=== PATIENT | male | born 1955 | race Caucasian/White ===

== ENCOUNTER 2019-11-17 08:20 | Inpatient (IN) ==
[~2019-11-17 08:20] MED LIST: *HR* Norepinephrine 4 MG/4 ML VIAL IVC ONE; D5% in Water 250 ML IV BAG IV ONE
[2019-11-17] MEDS ORDERED: *HR* Rocuronium Bromide 100 MG/10 ML VIAL IVC ONE (08:21)
[2019-11-17] MEDS ORDERED: 0.9 % Sodium Chloride 1,000 ML IVC ONE (08:34)
[2019-11-17] MEDS ORDERED: Ketamine *HR* 500 MG/10 ML MDV IVP ONE (08:52)
[2019-11-17] MEDS: Norepinephrine 4 MG in 0.9 % Sodium Chloride 250 ML IVC SCH ×3 (09:04→18:51)
[2019-11-17 09:10] LABS: Basophils % 0.1 %; Hematocrit 28.4 % (37.5-50.1); Hemoglobin 8.7 g/dL (12.9-16.9); Immature Granulocytes % 0.7 % (0-4); Lymphocytes # 0.4 K/mcL (0.6-4.6); Lymphocytes % 5.2 %; Mean Corpuscular HGB Conc 30.6 g/dL (31.6-35.5); Mean Corpuscular Hemoglobin 31.4 pg (28.0-33.3); Mean Corpuscular Volume 102.5 fL (83.0-100.0); Mean Platelet Volume 11.5 fL (9.4-12.4); Monocytes # 0.5 K/mcL (0.0-1.3); Monocytes % 6.3 %; Neutrophils # 6.7 K/mcL (1.6-8.9); Platelet Count 206 K/mcL (140-400); Red Blood Count 2.77 M/mcL (4.19-5.50); Red Cell Distribution Width 12.2 % (11.5-14.5); Segmented Neutrophils % 87.7 %; White Blood Count 7.6 K/mcL (4.3-11.1)
[2019-11-17] MEDS ORDERED: cefTRIAXone 1,000 MG in Water for inj. (sterile) 10 ML IVP ONE (09:26)
[2019-11-17] MEDS ORDERED: Azithromycin 500 MG in 0.9 % Sodium Chloride 250 ML IVPB ONE ×2 (09:26→12:01)
[2019-11-17 09:30] LABS: Acetaminophen < 10 mcg/mL (10-20); Alanine Aminotransferase 373 Units/L (7-52); Albumin 3.7 g/dL (3.5-5.7); Albumin/Globulin Ratio 1.4 (1.1-2.2); Alkaline Phosphatase 41 Units/L (34-104); Aspartate Amino Transferase 567 Units/L (13-39); BUN/Creatinine Ratio 12 (6-26); Bilirubin,Direct 0.2 mg/dL (0.0-0.2); Bilirubin,Indirect 0.2 mg/dL (0.0-1.0); Bilirubin,Total 0.4 mg/dL (0.3-1.0); Blood Urea Nitrogen 28 mg/dL (8-23); Calcium 8.8 mg/dL (8.6-10.3); Carbon Dioxide 28 mEq/L (23-29); Chloride 94 mEq/L (98-107); Ethanol < 10 mg/dL (Less than 10); Globulin 2.6 g/dL (2.4-3.5); Glucose 197 mg/dL (70-105); Osmolality,Calculated 293 (280-300); Potassium 4.1 mEq/L (3.5-5.1); Salicylate < 2.5 mg/dL (15.0-30.0); Sodium 136 mEq/L (136-145); Total Protein 6.3 g/dL (6.4-8.9); eGFR For African Americans 36 (> 60); eGFR For Non-African Americans 29 (> 60)
[2019-11-17 09:32] LABS: Troponin I 2.14 ng/mL (< 0.04)
[2019-11-17 09:45] LABS: Thyroid Stimulating Hormone 1.205 mcIU/mL (0.340-5.600)
[2019-11-17] MEDS: 0.9 % Sodium Chloride 1,000 ML IVC SCH ×2 (09:48→10:50)
[2019-11-17] MEDS ORDERED: MetroNIDAZOLE 500 MG/100 ML 500 MG/100 ML BAG IVPB ONE (09:57)
[2019-11-17 09:59] LABS: Bilirubin,Urine Small (Negative); Blood,Urine Negative (Negative); Clarity,Urine Cloudy (Clear); Color,Urine Dark Yellow (Yellow); Glucose,Urine (UA) Normal (Normal); Ketones,Urine Negative (Negative); Leukocyte Esterase,Urine Negative (Negative); Nitrite,Urine Negative (Negative); Protein,Urine 100 mg/dL (Neg-Trace); Specific Gravity,Urine 1.023 (1.010-1.025); Urobilinogen,Urine Normal (Normal)
[2019-11-17 10:02] LABS: Bacteria,Urine None Seen per hpf (None-Few); Hyaline Casts,Urine None Seen per lpf (None-Few); RBC,Urine 0-3 per hpf (0-3); Squamous Epithelial Cell,Urine Many per lpf (None-Few)
[2019-11-17 10:12] LABS: Amphetamine Screen,Urine Negative ng/mL (Cutoff=1000); Barbiturate Screen,Urine Negative ng/mL (Cutoff=200); Benzodiazepines Screen,Urine Negative ng/mL (Cutoff=200); Cannabinoid Screen,Urine Negative ng/mL (Cutoff = 50); Cocaine Screen,Urine Negative ng/mL (Cutoff= 300); Opiate Screen,Urine Negative ng/mL (Cutoff=300); Phencyclidine Screen,Urine Negative ng/mL (Cutoff=25)
[2019-11-17] MEDS ORDERED: *HR* FentaNYL (PF) 100 MCG/2 ML VIAL ONE (11:36)
[2019-11-17] MEDS ORDERED: *HR* FentaNYL (PF) 100 MCG/2 ML VIAL IVP ONE (11:38)
[2019-11-17] MEDS ORDERED: Artificial Tears SOLN 15 ML BOTTLE BOTH EYES PRN (12:01)
[2019-11-17] MEDS ORDERED: *HR* Heparin 5,000 UNIT/ML VIAL IVP PRN ×2 (12:01)
[2019-11-17] MEDS ORDERED: Acetaminophen 325 MG TABLET PO PRN (12:01)
[2019-11-17] MEDS ORDERED: Albuterol 2.5 MG/3 ML NEBULIZER IH PRN (12:01)
[2019-11-17] MEDS ORDERED: *HR* Heparin 5,000 UNIT/ML VIAL IVP ONE (12:01)
[2019-11-17] MEDS ORDERED: Naloxone 0.4 MG/ML INJ IVP PRN (12:01)
[2019-11-17] MEDS: FentaNYL (PF) 1,000 MCG in 0.9 % Sodium Chloride 80 ML IVC SCH ×2 (12:02→18:39)
[2019-11-17] MEDS ORDERED: Ketamine *HR* 500 MG/10 ML MDV ONE (12:28)
[2019-11-17 12:45] LABS: ABG Base Excess 3 mEq/L (-2 to 3); ABG HCO3 32 mEq/L (21-27); ABG Oxygen Saturation 95 % (95-98); ABG PCO2 75 mmHg (35-45); ABG PH 7.24 pH Units (7.32-7.45); ABG PO2 89 mmHg (85-104); ABG TCO2 34 mEq/L (20-26); Blood Gas Modality ASSIST CONTROL; Blood Gas VT 550 cc
[2019-11-17] MEDS ORDERED: Aspirin 325 MG TABLET PO ONE (12:55)
[2019-11-17] MEDS ORDERED: Vancomycin (wt based) 1,000 MG VIAL IVPB SCH (13:00)
[2019-11-17 13:02] LABS: Hematocrit 28.9 % (37.5-50.1); Hemoglobin 8.9 g/dL (12.9-16.9)
[2019-11-17] MEDS: Pantoprazole 40 MG VIAL IVP SCH (13:11)
[2019-11-17] MEDS: Heparin 25,000 UNIT/250 ML D5W 25,000 UNIT/250 ML IV.SOLN IVC SCH (13:11)
[2019-11-17 13:14] LABS: Heparin anti-factor XA UFH < 0.04 IU/mL (0.30-0.70)
[2019-11-17 13:15] LABS: INR 1.1; Prothrombin Time 12.2 Seconds (9.4-12.1)
[2019-11-17] MEDS: Ipratropium/Albuterol Neb 3 ML IH SCH ×3 (14:02→19:33)
[2019-11-17] MEDS: Chlorhexidine Rinse 15 ML MOUTHWASH MM SCH ×2 (17:06→19:21)
[2019-11-17] MEDS: methylPREDNISolone 125 MG/2 ML VIAL IVP SCH (17:06)
[2019-11-17] MEDS: Artificial Tears SOLN 15 ML BOTTLE BOTH EYES SCH ×2 (17:56→19:21)
[2019-11-17] MEDS: Doxycycline 100 MG in 0.9 % Sodium Chloride Mini Bag 100 ML IVPB SCH (18:03)
[2019-11-17 18:10] LABS: ABG Base Excess 5 mEq/L (-2 to 3); ABG HCO3 34 mEq/L (21-27); ABG Oxygen Saturation 91 % (95-98); ABG PCO2 80 mmHg (35-45); ABG PH 7.24 pH Units (7.32-7.45); ABG PO2 76 mmHg (85-104); ABG TCO2 36 mEq/L (20-26); Blood Gas Modality AF; Blood Gas VT 550 cc
[2019-11-17] MEDS: cefTRIAXone 2,000 MG in Water for inj. (sterile) 20 ML IVP SCH (19:21)
[2019-11-17] MEDS ORDERED: Perflutren Lipid Microsphere 1.3 ML in 0.9 % Sodium Chloride 8.7 ML IVP ONE (19:58)
[2019-11-17 20:18] LABS: Adenovirus Not Detected (Not Detect); Bordetella Pertussis Not Detected (Not Detect); Chlamydophila pneumoniae Not Detected (Not Detect); Coronavirus 229E Not Detected (Not Detect); Coronavirus HKU1 Not Detected (Not Detect); Coronavirus NL63 Not Detected (Not Detect); Coronavirus OC43 Not Detected (Not Detect); Human Metapneumovirus Not Detected (Not Detect); Human Rhinovirus/Enterovirus Not Detected (Not Detect); Influenza A Subtype 2009 H1 Not Detected (Not Detect); Mycoplasma pneumoniae Not Detected (Not Detect); Parainfluenza Virus 1 Not Detected (Not Detect); Parainfluenza Virus 2 Not Detected (Not Detect); Parainfluenza Virus 3 Not Detected (Not Detect); Parainfluenza Virus 4 Not Detected (Not Detect); Respiratory Syncytial Virus Not Detected (Not Detect)
[2019-11-17 20:21] LABS: Influenza B DETECTED (Not Detect)
[2019-11-17 21:47] LABS: Hemoglobin 8.7 g/dL (12.9-16.9)
[2019-11-17 22:04] LABS: % Iron Saturation 5 % (20-55); Iron 19 mcg/dL (65-175); Transferrin 276 mg/dL (203-362)
[2019-11-18] MEDS: Ipratropium/Albuterol Neb 3 ML IH SCH ×7 (00:14→23:10)
[2019-11-18] MEDS: Artificial Tears SOLN 15 ML BOTTLE BOTH EYES SCH ×7 (00:43→23:44)
[2019-11-18 04:17] LABS: Alanine Aminotransferase 396 Units/L (7-52); Albumin 3.4 g/dL (3.5-5.7); Albumin/Globulin Ratio 1.4 (1.1-2.2); Alkaline Phosphatase 36 Units/L (34-104); Aspartate Amino Transferase 474 Units/L (13-39); BUN/Creatinine Ratio 26 (6-26); Bilirubin,Direct 0.1 mg/dL (0.0-0.2); Bilirubin,Indirect 0.2 mg/dL (0.0-1.0); Bilirubin,Total 0.3 mg/dL (0.3-1.0); Blood Urea Nitrogen 31 mg/dL (8-23); Calcium 7.7 mg/dL (8.6-10.3); Carbon Dioxide 31 mEq/L (23-29); Chloride 101 mEq/L (98-107); Globulin 2.4 g/dL (2.4-3.5); Glucose 190 mg/dL (70-105); Magnesium 2.3 mg/dL (1.6-2.6); Osmolality,Calculated 296 (280-300); Phosphorous 3.8 mg/dL (2.7-4.5); Potassium 4.1 mEq/L (3.5-5.1); Sodium 137 mEq/L (136-145); Total Protein 5.8 g/dL (6.4-8.9); Troponin I 1.97 ng/mL (< 0.04); eGFR For African Americans > 60 (> 60); eGFR For Non-African Americans > 60 (> 60)
[2019-11-18 04:24] LABS: Basophils % 0.1 %; Hematocrit 27.9 % (37.5-50.1); Hemoglobin 8.6 g/dL (12.9-16.9); Immature Granulocytes % 0.6 % (0-4); Lymphocytes # 0.7 K/mcL (0.6-4.6); Lymphocytes % 8.2 %; Mean Corpuscular HGB Conc 30.8 g/dL (31.6-35.5); Mean Corpuscular Hemoglobin 30.9 pg (28.0-33.3); Mean Corpuscular Volume 100.4 fL (83.0-100.0); Mean Platelet Volume 12.1 fL (9.4-12.4); Monocytes # 0.6 K/mcL (0.0-1.3); Monocytes % 6.6 %; Neutrophils # 7.7 K/mcL (1.6-8.9); Platelet Count 201 K/mcL (140-400); Red Blood Count 2.78 M/mcL (4.19-5.50); Red Cell Distribution Width 12.2 % (11.5-14.5); Segmented Neutrophils % 84.5 %; White Blood Count 9.1 K/mcL (4.3-11.1)
[2019-11-18] MEDS: FentaNYL (PF) 1,000 MCG in 0.9 % Sodium Chloride 80 ML IVC SCH ×3 (04:28→22:13)
[2019-11-18] MEDS: Heparin 25,000 UNIT/250 ML D5W 25,000 UNIT/250 ML IV.SOLN IVC SCH ×2 (04:40→22:13)
[2019-11-18 04:44] LABS: ABG Base Excess 7 mEq/L (-2 to 3); ABG HCO3 33 mEq/L (21-27); ABG Oxygen Saturation 97 % (95-98); ABG PCO2 55 mmHg (35-45); ABG PH 7.39 pH Units (7.32-7.45); ABG PO2 89 mmHg (85-104); ABG TCO2 34 mEq/L (20-26); Blood Gas Modality ASSIST CONTROL; Blood Gas VT 550 cc
[2019-11-18] MEDS: Doxycycline 100 MG in 0.9 % Sodium Chloride Mini Bag 100 ML IVPB SCH ×2 (05:37→17:12)
[2019-11-18] MEDS: methylPREDNISolone 125 MG/2 ML VIAL IVP SCH ×2 (05:38→17:11)
[2019-11-18] MEDS ORDERED: Aspirin Enteric Coated 81 MG Tablet PO SCH (09:00)
[2019-11-18] MEDS: Chlorhexidine Rinse 15 ML MOUTHWASH MM SCH ×2 (09:26→19:53)
[2019-11-18] MEDS: Pantoprazole 40 MG VIAL IVP SCH (09:28)
[2019-11-18] MEDS ORDERED: *HR* Dextrose 50 % in Water (Syg) 50 ML SYRINGE IVP PRN (11:23)
[2019-11-18] MEDS ORDERED: Insulin Human Regular 100 UNIT in 0.9 % Sodium Chloride 100 ML IVC SCH (11:30)
[2019-11-18] MEDS ORDERED: Dextrose Gel 15 GM/37.5 ML TUBE PO PRN ×2 (12:02)
[2019-11-18] MEDS ORDERED: D5% in Water 1,000 ML IVC PRN (12:02)
[2019-11-18] MEDS: Insulin LISPRO 300 UNITS/3 ML VIAL SQ SCH ×3 (12:15→23:44)
[2019-11-18] MEDS ORDERED: *HR* LORazepam 0.5 MG TABLET PO SCH (15:00)
[2019-11-18] MEDS ORDERED: *HR* LORazepam 0.5 MG TABLET GTUBE PRN (15:00)
[2019-11-18] MEDS: Norepinephrine 4 MG in 0.9 % Sodium Chloride 250 ML IVC SCH (16:45)
[2019-11-18] MEDS ORDERED: Furosemide 20 MG/2 ML VIAL IVP SCH ×2 (17:00)
[2019-11-18] MEDS: Docusate Oral Soln 100 MG/10 ML UDC GTUBE SCH (19:53)
[2019-11-18] MEDS: cefTRIAXone 2,000 MG in Water for inj. (sterile) 20 ML IVP SCH (19:54)
[2019-11-18] MEDS: Perphenazine 8 MG TABLET GTUBE SCH (19:54)
[2019-11-18] MEDS: lamoTRIgine 100 MG TABLET GTUBE SCH (19:54)
[2019-11-18] MEDS ORDERED: Venlafaxine XR (24 HR) 150 MG CAP.ER.24H PO SCH (21:00)
[2019-11-18] MEDS ORDERED: Perphenazine 8 MG TABLET PO SCH (21:00)
[2019-11-18] MEDS ORDERED: lamoTRIgine 100 MG TABLET PO SCH (21:00)
[2019-11-19] MEDS: Ipratropium/Albuterol Neb 3 ML IH SCH ×6 (03:05→23:34)
[2019-11-19] MEDS: Artificial Tears SOLN 15 ML BOTTLE BOTH EYES SCH ×6 (03:50→23:21)
[2019-11-19 04:00] LABS: Basophils % 0.1 %; Hematocrit 27.8 % (37.5-50.1); Hemoglobin 8.6 g/dL (12.9-16.9); Immature Granulocytes % 0.7 % (0-4); Lymphocytes # 0.6 K/mcL (0.6-4.6); Lymphocytes % 4.6 %; Mean Corpuscular HGB Conc 30.9 g/dL (31.6-35.5); Mean Corpuscular Hemoglobin 30.8 pg (28.0-33.3); Mean Corpuscular Volume 99.6 fL (83.0-100.0); Mean Platelet Volume 12.1 fL (9.4-12.4); Monocytes # 0.8 K/mcL (0.0-1.3); Monocytes % 6.3 %; Neutrophils # 11.6 K/mcL (1.6-8.9); Platelet Count 228 K/mcL (140-400); Red Blood Count 2.79 M/mcL (4.19-5.50); Red Cell Distribution Width 12.4 % (11.5-14.5); Segmented Neutrophils % 88.3 %; White Blood Count 13.1 K/mcL (4.3-11.1)
[2019-11-19 04:28] LABS: Alanine Aminotransferase 530 Units/L (7-52); Albumin 3.3 g/dL (3.5-5.7); Albumin/Globulin Ratio 1.3 (1.1-2.2); Alkaline Phosphatase 36 Units/L (34-104); Aspartate Amino Transferase 404 Units/L (13-39); BUN/Creatinine Ratio 36 (6-26); Bilirubin,Total 0.3 mg/dL (0.3-1.0); Blood Urea Nitrogen 40 mg/dL (8-23); Calcium 7.6 mg/dL (8.6-10.3); Carbon Dioxide 33 mEq/L (23-29); Chloride 100 mEq/L (98-107); Globulin 2.5 g/dL (2.4-3.5); Glucose 198 mg/dL (70-105); Magnesium 2.5 mg/dL (1.6-2.6); Osmolality,Calculated 301 (280-300); Phosphorous 3.2 mg/dL (2.7-4.5); Potassium 3.8 mEq/L (3.5-5.1); Sodium 138 mEq/L (136-145); Total Protein 5.8 g/dL (6.4-8.9); eGFR For African Americans > 60 (> 60); eGFR For Non-African Americans > 60 (> 60)
[2019-11-19 04:38] LABS: ABG Base Excess 9 mEq/L (-2 to 3); ABG HCO3 36 mEq/L (21-27); ABG Oxygen Saturation 96 % (95-98); ABG PCO2 58 mmHg (35-45); ABG PO2 88 mmHg (85-104); ABG TCO2 37 mEq/L (20-26); Blood Gas Modality VC; Blood Gas VT 550 cc
[2019-11-19] MEDS: Doxycycline 100 MG in 0.9 % Sodium Chloride Mini Bag 100 ML IVPB SCH ×2 (05:20→18:26)
[2019-11-19] MEDS: methylPREDNISolone 125 MG/2 ML VIAL IVP SCH ×2 (05:21→18:26)
[2019-11-19] MEDS: Insulin LISPRO 300 UNITS/3 ML VIAL SQ SCH ×4 (05:27→23:21)
[2019-11-19] MEDS: FentaNYL (PF) 1,000 MCG in 0.9 % Sodium Chloride 80 ML IVC SCH ×3 (07:23→20:57)
[2019-11-19] MEDS: Docusate Oral Soln 100 MG/10 ML UDC GTUBE SCH ×2 (08:11→20:36)
[2019-11-19] MEDS: Chlorhexidine Rinse 15 ML MOUTHWASH MM SCH ×2 (08:11→20:36)
[2019-11-19] MEDS: Pantoprazole 40 MG VIAL IVP SCH (08:11)
[2019-11-19] MEDS: Perphenazine 8 MG TABLET GTUBE SCH ×2 (08:12→20:37)
[2019-11-19] MEDS: Aspirin 81 MG TAB.CHEW GTUBE SCH (08:12)
[2019-11-19] MEDS ORDERED: Furosemide 20 MG/2 ML VIAL IVP SCH (09:00)
[2019-11-19] MEDS ORDERED: Aminoglycoside Consult 1 EACH MC ONE (09:14)
[2019-11-19] MEDS: Potassium Chloride Elixir 20 MEQ/15 ML UDC GTUBE SCH ×2 (11:25→20:36)
[2019-11-19] MEDS: Dexmedetomidine HCl 400 MCG/100 ML MLS IVC SCH ×3 (11:58→20:38)
[2019-11-19 12:32] LABS: Albumin 3.3 g/dL (3.5-5.7); Albumin/Globulin Ratio 1.4 (1.1-2.2); Bilirubin,Direct 0.1 mg/dL (0.0-0.2); Bilirubin,Indirect 0.2 mg/dL (0.0-1.0); Bilirubin,Total 0.3 mg/dL (0.3-1.0); Globulin 2.4 g/dL (2.4-3.5); Total Protein 5.7 g/dL (6.4-8.9)
[2019-11-19 13:06] LABS: Hepatitis B Surface Antigen Nonreactive (Nonreactive)
[2019-11-19 13:34] LABS: Hepatitis C Virus Antibody Nonreactive (Nonreactive)
[2019-11-19 13:35] LABS: Hepatitis B Core IgM Nonreactive (Nonreactive)
[2019-11-19 13:36] LABS: Hepatitis A Antibody IgM Nonreactive (Nonreactive)
[2019-11-19] MEDS ORDERED: *HR* LORazepam 2 MG/ML VIAL ONE (16:55)
[2019-11-19] MEDS: *HR* LORazepam 2 MG/ML VIAL IVP PRN (17:00)
[2019-11-19] MEDS ORDERED: Acetylcysteine 15,000 MG in D5% in Water 250 ML IVC ONE (17:02)
[2019-11-19] MEDS: *HR* Heparin 5,000 UNIT/ML VIAL SQ SCH (18:27)
[2019-11-19] MEDS ORDERED: Acetylcysteine 5,000 MG in D5% in Water 500 ML IVC ONE (18:30)
[2019-11-19] MEDS: lamoTRIgine 100 MG TABLET GTUBE SCH (20:37)
[2019-11-19] MEDS: cefTRIAXone 2,000 MG in Water for inj. (sterile) 20 ML IVP SCH (20:37)
[2019-11-19] MEDS: Furosemide 20 MG/2 ML VIAL IVP SCH (20:38)
[2019-11-19] MEDS: Norepinephrine 4 MG in 0.9 % Sodium Chloride 250 ML IVC SCH (20:39)
[2019-11-19] MEDS ORDERED: Acetylcysteine 10,000 MG in D5% in Water 1,000 ML IVC ONE (22:30)
[2019-11-20] MEDS: Dexmedetomidine HCl 400 MCG/100 ML MLS IVC SCH ×4 (00:17→20:00)
[2019-11-20] MEDS: FentaNYL (PF) 1,000 MCG in 0.9 % Sodium Chloride 80 ML IVC SCH ×5 (02:53→23:05)
[2019-11-20 03:20] LABS: Basophils % 0.1 %; Hematocrit 28.5 % (37.5-50.1); Hemoglobin 8.8 g/dL (12.9-16.9); Immature Granulocytes % 1.4 % (0-4); Lymphocytes # 0.5 K/mcL (0.6-4.6); Lymphocytes % 4.5 %; Mean Corpuscular HGB Conc 30.9 g/dL (31.6-35.5); Mean Corpuscular Volume 100.4 fL (83.0-100.0); Mean Platelet Volume 11.9 fL (9.4-12.4); Monocytes # 0.9 K/mcL (0.0-1.3); Monocytes % 8.1 %; Neutrophils # 9.6 K/mcL (1.6-8.9); Platelet Count 225 K/mcL (140-400); Red Blood Count 2.84 M/mcL (4.19-5.50); Red Cell Distribution Width 12.6 % (11.5-14.5); Segmented Neutrophils % 85.9 %; White Blood Count 11.1 K/mcL (4.3-11.1)
[2019-11-20 03:34] LABS: Alanine Aminotransferase 495 Units/L (7-52); Albumin 3.3 g/dL (3.5-5.7); Albumin/Globulin Ratio 1.3 (1.1-2.2); Alkaline Phosphatase 32 Units/L (34-104); Aspartate Amino Transferase 185 Units/L (13-39); BUN/Creatinine Ratio 38 (6-26); Bilirubin,Total 0.3 mg/dL (0.3-1.0); Blood Urea Nitrogen 34 mg/dL (8-23); Calcium 7.6 mg/dL (8.6-10.3); Carbon Dioxide 35 mEq/L (23-29); Chloride 100 mEq/L (98-107); Globulin 2.5 g/dL (2.4-3.5); Glucose 203 mg/dL (70-105); Osmolality,Calculated 309 (280-300); Potassium 4.3 mEq/L (3.5-5.1); Sodium 143 mEq/L (136-145); Total Protein 5.8 g/dL (6.4-8.9); eGFR For African Americans > 60 (> 60); eGFR For Non-African Americans > 60 (> 60)
[2019-11-20] MEDS: Artificial Tears SOLN 15 ML BOTTLE BOTH EYES SCH ×6 (03:41→23:22)
[2019-11-20] MEDS: Insulin LISPRO 300 UNITS/3 ML VIAL SQ SCH ×6 (03:42→23:28)
[2019-11-20] MEDS: Ipratropium/Albuterol Neb 3 ML IH SCH ×10 (03:56→23:44)
[2019-11-20 04:37] LABS: ABG Base Excess 12 mEq/L (-2 to 3); ABG HCO3 39 mEq/L (21-27); ABG Oxygen Saturation 96 % (95-98); ABG PCO2 62 mmHg (35-45); ABG PH 7.41 pH Units (7.32-7.45); ABG PO2 85 mmHg (85-104); ABG TCO2 41 mEq/L (20-26); Blood Gas Modality ASSIST CONTROL; Blood Gas VT 550 cc
[2019-11-20] MEDS: methylPREDNISolone 125 MG/2 ML VIAL IVP SCH ×2 (05:27→17:02)
[2019-11-20] MEDS: Doxycycline 100 MG in 0.9 % Sodium Chloride Mini Bag 100 ML IVPB SCH ×2 (05:28→16:49)
[2019-11-20] MEDS: *HR* Heparin 5,000 UNIT/ML VIAL SQ SCH ×2 (05:28→17:03)
[2019-11-20] MEDS: Potassium Chloride Elixir 20 MEQ/15 ML UDC GTUBE SCH ×2 (08:33→20:23)
[2019-11-20] MEDS: Furosemide 20 MG/2 ML VIAL IVP SCH ×2 (08:33→20:24)
[2019-11-20] MEDS: Chlorhexidine Rinse 15 ML MOUTHWASH MM SCH ×2 (08:33→20:23)
[2019-11-20] MEDS: Perphenazine 8 MG TABLET GTUBE SCH ×2 (08:33→20:23)
[2019-11-20] MEDS: Pantoprazole 40 MG VIAL IVP SCH (08:33)
[2019-11-20] MEDS: Aspirin 81 MG TAB.CHEW GTUBE SCH (08:34)
[2019-11-20] MEDS: *HR* LORazepam 2 MG/ML VIAL IVP PRN (13:17)
[2019-11-20] MEDS ORDERED: Ibuprofen 400 MG TABLET PO PRN (13:51)
[2019-11-20 14:05] LABS: Bilirubin,Urine Negative (Negative); Blood,Urine Trace (Negative); Clarity,Urine Clear (Clear); Color,Urine Yellow (Yellow); Glucose,Urine (UA) >=1000 mg/dL (Normal); Ketones,Urine Negative (Negative); Leukocyte Esterase,Urine Negative (Negative); Nitrite,Urine Negative (Negative); Protein,Urine 30 mg/dL (Neg-Trace); Specific Gravity,Urine 1.029 (1.010-1.025); Urobilinogen,Urine Normal (Normal)
[2019-11-20 14:09] LABS: Bacteria,Urine None Seen per hpf (None-Few); Hyaline Casts,Urine None Seen per lpf (None-Few); Squamous Epithelial Cell,Urine Moderate per lpf (None-Few)
[2019-11-20 14:30] LABS: Alanine Aminotransferase 407 Units/L (7-52); Albumin 3.4 g/dL (3.5-5.7); Albumin/Globulin Ratio 1.3 (1.1-2.2); Alkaline Phosphatase 35 Units/L (34-104); Aspartate Amino Transferase 101 Units/L (13-39); BUN/Creatinine Ratio 42 (6-26); Bilirubin,Total 0.3 mg/dL (0.3-1.0); Blood Urea Nitrogen 34 mg/dL (8-23); Calcium 7.7 mg/dL (8.6-10.3); Carbon Dioxide 37 mEq/L (23-29); Chloride 98 mEq/L (98-107); Globulin 2.6 g/dL (2.4-3.5); Glucose 256 mg/dL (70-105); Osmolality,Calculated 308 (280-300); Potassium 4.5 mEq/L (3.5-5.1); Sodium 141 mEq/L (136-145); eGFR For African Americans > 60 (> 60); eGFR For Non-African Americans > 60 (> 60)
[2019-11-20 14:36] LABS: RBC,Urine 0-3 per hpf (0-3)
[2019-11-20] MEDS: Cefepime HCl 2,000 MG in Water for inj. (sterile) 20 ML IVP SCH ×2 (16:50→23:21)
[2019-11-20] MEDS: Norepinephrine 4 MG in 0.9 % Sodium Chloride 250 ML IVC SCH (19:52)
[2019-11-20] MEDS: lamoTRIgine 100 MG TABLET GTUBE SCH (20:23)
[2019-11-20] MEDS: Docusate Oral Soln 100 MG/10 ML UDC GTUBE SCH (20:24)
[2019-11-21] MEDS: Ipratropium/Albuterol Neb 3 ML IH SCH ×12 (01:10→23:47)
[2019-11-21] MEDS: Dexmedetomidine HCl 400 MCG/100 ML MLS IVC SCH ×5 (01:40→23:11)
[2019-11-21 03:46] LABS: BUN/Creatinine Ratio 44 (6-26); Blood Urea Nitrogen 37 mg/dL (8-23); Calcium 8.2 mg/dL (8.6-10.3); Carbon Dioxide 37 mEq/L (23-29); Chloride 101 mEq/L (98-107); Glucose 275 mg/dL (70-105); Osmolality,Calculated 306 (280-300); Potassium 4.7 mEq/L (3.5-5.1); Sodium 139 mEq/L (136-145); eGFR For African Americans > 60 (> 60); eGFR For Non-African Americans > 60 (> 60)
[2019-11-21] MEDS: Artificial Tears SOLN 15 ML BOTTLE BOTH EYES SCH ×6 (03:48→23:09)
[2019-11-21] MEDS: Insulin LISPRO 300 UNITS/3 ML VIAL SQ SCH ×2 (03:49→08:58)
[2019-11-21] MEDS: FentaNYL (PF) 1,000 MCG in 0.9 % Sodium Chloride 80 ML IVC SCH ×3 (03:52→21:24)
[2019-11-21 03:56] LABS: Basophils % 0.1 %; Hematocrit 28.9 % (37.5-50.1); Hemoglobin 8.5 g/dL (12.9-16.9); Immature Granulocytes % 1.4 % (0-4); Lymphocytes # 0.5 K/mcL (0.6-4.6); Lymphocytes % 5.4 %; Mean Corpuscular HGB Conc 29.4 g/dL (31.6-35.5); Mean Corpuscular Volume 102.1 fL (83.0-100.0); Mean Platelet Volume 12.1 fL (9.4-12.4); Monocytes % 10.4 %; Neutrophils # 8.3 K/mcL (1.6-8.9); Platelet Count 240 K/mcL (140-400); Red Blood Count 2.83 M/mcL (4.19-5.50); Red Cell Distribution Width 12.7 % (11.5-14.5); Segmented Neutrophils % 82.7 %
[2019-11-21 04:13] LABS: ABG Base Excess 16 mEq/L (-2 to 3); ABG HCO3 43 mEq/L (21-27); ABG Oxygen Saturation 95 % (95-98); ABG PCO2 68 mmHg (35-45); ABG PH 7.41 pH Units (7.32-7.45); ABG PO2 79 mmHg (85-104); ABG TCO2 45 mEq/L (20-26); Blood Gas Modality AF; Blood Gas VT 550 cc
[2019-11-21] MEDS: Doxycycline 100 MG in 0.9 % Sodium Chloride Mini Bag 100 ML IVPB SCH ×2 (05:27→16:17)
[2019-11-21] MEDS: methylPREDNISolone 125 MG/2 ML VIAL IVP SCH ×2 (05:28→16:18)
[2019-11-21] MEDS: *HR* Heparin 5,000 UNIT/ML VIAL SQ SCH ×2 (05:28→16:17)
[2019-11-21] MEDS: Cefepime HCl 2,000 MG in Water for inj. (sterile) 20 ML IVP SCH ×3 (08:56→23:09)
[2019-11-21] MEDS: Docusate Oral Soln 100 MG/10 ML UDC GTUBE SCH ×2 (08:56→20:40)
[2019-11-21] MEDS: Chlorhexidine Rinse 15 ML MOUTHWASH MM SCH ×2 (08:56→20:38)
[2019-11-21] MEDS: Potassium Chloride Elixir 20 MEQ/15 ML UDC GTUBE SCH ×2 (08:56→20:40)
[2019-11-21] MEDS: Aspirin 81 MG TAB.CHEW GTUBE SCH (08:57)
[2019-11-21] MEDS: Furosemide 20 MG/2 ML VIAL IVP SCH (08:57)
[2019-11-21] MEDS: Perphenazine 8 MG TABLET GTUBE SCH ×2 (08:57→20:38)
[2019-11-21] MEDS: Pantoprazole 40 MG VIAL IVP SCH (08:57)
[2019-11-21] MEDS ORDERED: Bisacodyl 10 MG RECTAL SUPPOSITORY RC PRN (11:14)
[2019-11-21] MEDS ORDERED: *HR* Dextrose 50 % in Water (Syg) 50 ML SYRINGE IVP PRN (11:17)
[2019-11-21] MEDS ORDERED: Insulin Human Regular 100 UNIT in 0.9 % Sodium Chloride 100 ML IVC SCH (11:30)
[2019-11-21 12:44] LABS: Alanine Aminotransferase 325 Units/L (7-52); Albumin 3.3 g/dL (3.5-5.7); Albumin/Globulin Ratio 1.5 (1.1-2.2); Alkaline Phosphatase 30 Units/L (34-104); Aspartate Amino Transferase 59 Units/L (13-39); Bilirubin,Direct 0.2 mg/dL (0.0-0.2); Bilirubin,Indirect 0.2 mg/dL (0.0-1.0); Bilirubin,Total 0.4 mg/dL (0.3-1.0); Globulin 2.2 g/dL (2.4-3.5); Total Protein 5.5 g/dL (6.4-8.9)
[2019-11-21] MEDS: Norepinephrine 4 MG in 0.9 % Sodium Chloride 250 ML IVC SCH (14:09)
[2019-11-21 16:30] LABS: VBG Ionized Calcium 1.14 mmol/L (1.15-1.35)
[2019-11-21] MEDS ORDERED: Ondansetron 4 MG/2 ML VIAL IVP PRN (17:19)
[2019-11-21 17:28] LABS: BUN/Creatinine Ratio 43 (6-26); Blood Urea Nitrogen 37 mg/dL (8-23); Calcium 8.6 mg/dL (8.6-10.3); Carbon Dioxide 43 mEq/L (23-29); Chloride 100 mEq/L (98-107); Glucose 122 mg/dL (70-105); Osmolality,Calculated 308 (280-300); Phosphorous 2.4 mg/dL (2.7-4.5); Potassium 4.7 mEq/L (3.5-5.1); Sodium 144 mEq/L (136-145); eGFR For African Americans > 60 (> 60); eGFR For Non-African Americans > 60 (> 60)
[2019-11-21 18:44] LABS: INR 1.3; Prothrombin Time 15.3 Seconds (9.4-12.1)
[2019-11-21 18:47] LABS: Activated Partial Thrombo Time 64.4 Seconds (26.0-36.0)
[2019-11-21] MEDS ORDERED: *HR* Heparin 5,000 UNIT/ML VIAL IVP ONE (19:28)
[2019-11-21] MEDS ORDERED: *HR* Heparin 5,000 UNIT/ML VIAL IVP PRN ×2 (19:28)
[2019-11-21] MEDS: lamoTRIgine 100 MG TABLET GTUBE SCH (20:39)
[2019-11-21] MEDS: Heparin 25,000 UNIT/250 ML D5W 25,000 UNIT/250 ML IV.SOLN IVC SCH (20:40)
[2019-11-21 21:38] LABS: VBG Ionized Calcium 1.12 mmol/L (1.15-1.35)
[2019-11-21 21:59] LABS: BUN/Creatinine Ratio 42 (6-26); Blood Urea Nitrogen 35 mg/dL (8-23); Calcium 8.6 mg/dL (8.6-10.3); Carbon Dioxide 43 mEq/L (23-29); Chloride 101 mEq/L (98-107); Glucose 152 mg/dL (70-105); Lipase 109 Units/L (11-82); Magnesium 2.1 mg/dL (1.6-2.6); Osmolality,Calculated 313 (280-300); Potassium 5.4 mEq/L (3.5-5.1); Sodium 146 mEq/L (136-145); eGFR For African Americans > 60 (> 60); eGFR For Non-African Americans > 60 (> 60)
[2019-11-22] MEDS: Ipratropium/Albuterol Neb 3 ML IH SCH ×12 (02:11→23:41)
[2019-11-22 03:17] LABS: VBG Ionized Calcium 1.09 mmol/L (1.15-1.35)
[2019-11-22 03:22] LABS: Basophils % 0.1 %; Hematocrit 29.5 % (37.5-50.1); Hemoglobin 8.6 g/dL (12.9-16.9); Immature Granulocytes % 1.5 % (0-4); Lymphocytes % 7.4 %; Mean Corpuscular HGB Conc 29.2 g/dL (31.6-35.5); Mean Corpuscular Hemoglobin 30.2 pg (28.0-33.3); Mean Corpuscular Volume 103.5 fL (83.0-100.0); Mean Platelet Volume 11.5 fL (9.4-12.4); Monocytes # 1.5 K/mcL (0.0-1.3); Monocytes % 10.9 %; Platelet Count 222 K/mcL (140-400); Red Blood Count 2.85 M/mcL (4.19-5.50); Red Cell Distribution Width 12.8 % (11.5-14.5); Segmented Neutrophils % 80.1 %; White Blood Count 13.7 K/mcL (4.3-11.1)
[2019-11-22 03:44] LABS: Alanine Aminotransferase 228 Units/L (7-52); Albumin 3.2 g/dL (3.5-5.7); Albumin/Globulin Ratio 1.3 (1.1-2.2); Alkaline Phosphatase 29 Units/L (34-104); Aspartate Amino Transferase 34 Units/L (13-39); BUN/Creatinine Ratio 42 (6-26); Bilirubin,Direct 0.3 mg/dL (0.0-0.2); Bilirubin,Indirect 0.3 mg/dL (0.0-1.0); Bilirubin,Total 0.6 mg/dL (0.3-1.0); Blood Urea Nitrogen 33 mg/dL (8-23); Calcium 8.4 mg/dL (8.6-10.3); Carbon Dioxide 40 mEq/L (23-29); Chloride 102 mEq/L (98-107); Globulin 2.4 g/dL (2.4-3.5); Glucose 137 mg/dL (70-105); Osmolality,Calculated 311 (280-300); Potassium 4.9 mEq/L (3.5-5.1); Sodium 146 mEq/L (136-145); Total Protein 5.6 g/dL (6.4-8.9); eGFR For African Americans > 60 (> 60); eGFR For Non-African Americans > 60 (> 60)
[2019-11-22] MEDS: Artificial Tears SOLN 15 ML BOTTLE BOTH EYES SCH ×6 (04:26→23:29)
[2019-11-22 05:08] LABS: ABG Base Excess 17 mEq/L (-2 to 3); ABG HCO3 45 mEq/L (21-27); ABG Oxygen Saturation 95 % (95-98); ABG PCO2 75 mmHg (35-45); ABG PH 7.38 pH Units (7.32-7.45); ABG PO2 80 mmHg (85-104); ABG TCO2 47 mEq/L (20-26); Blood Gas VT 550 cc
[2019-11-22] MEDS: methylPREDNISolone 125 MG/2 ML VIAL IVP SCH ×2 (05:11→17:18)
[2019-11-22] MEDS: Doxycycline 100 MG in 0.9 % Sodium Chloride Mini Bag 100 ML IVPB SCH ×2 (05:11→17:18)
[2019-11-22] MEDS: Dexmedetomidine HCl 400 MCG/100 ML MLS IVC SCH ×4 (05:12→22:30)
[2019-11-22] MEDS: Cefepime HCl 2,000 MG in Water for inj. (sterile) 20 ML IVP SCH ×3 (07:53→23:29)
[2019-11-22] MEDS: Chlorhexidine Rinse 15 ML MOUTHWASH MM SCH ×2 (07:53→19:29)
[2019-11-22] MEDS: Perphenazine 8 MG TABLET GTUBE SCH ×2 (07:54→19:30)
[2019-11-22] MEDS: Docusate Oral Soln 100 MG/10 ML UDC GTUBE SCH ×2 (07:54→19:29)
[2019-11-22] MEDS: Pantoprazole 40 MG VIAL IVP SCH (07:54)
[2019-11-22] MEDS: Potassium Chloride Elixir 20 MEQ/15 ML UDC GTUBE SCH ×2 (07:55→19:31)
[2019-11-22] MEDS: Aspirin 81 MG TAB.CHEW GTUBE SCH (07:55)
[2019-11-22] MEDS ORDERED: D5% in Water 1,000 ML IVC PRN (09:11)
[2019-11-22] MEDS ORDERED: *HR* Dextrose 50 % in Water (Syg) 50 ML SYRINGE IVP PRN (09:11)
[2019-11-22] MEDS ORDERED: Dextrose Gel 15 GM/37.5 ML TUBE PO PRN ×2 (09:11)
[2019-11-22] MEDS: Norepinephrine 4 MG in 0.9 % Sodium Chloride 250 ML IVC SCH (10:48)
[2019-11-22] MEDS: Insulin LISPRO 300 UNITS/3 ML VIAL SQ SCH ×3 (12:03→23:29)
[2019-11-22] MEDS: FentaNYL (PF) 1,000 MCG in 0.9 % Sodium Chloride 80 ML IVC SCH (12:15)
[2019-11-22 12:51] LABS: Bilirubin,Urine Negative (Negative); Blood,Urine Small (Negative); Clarity,Urine Clear (Clear); Color,Urine Yellow (Yellow); Glucose,Urine (UA) 500 mg/dL (Normal); Ketones,Urine Trace mg/dL (Negative); Leukocyte Esterase,Urine Negative (Negative); Nitrite,Urine Negative (Negative); Protein,Urine 30 mg/dL (Neg-Trace); Specific Gravity,Urine 1.025 (1.010-1.025); Urobilinogen,Urine Normal (Normal)
[2019-11-22 12:54] LABS: Bacteria,Urine None Seen per hpf (None-Few); Hyaline Casts,Urine None Seen per lpf (None-Few); RBC,Urine 0-3 per hpf (0-3); Squamous Epithelial Cell,Urine Few per lpf (None-Few); WBC,Urine 0-3 per hpf (0-3)
[2019-11-22] MEDS: Heparin 25,000 UNIT/250 ML D5W 25,000 UNIT/250 ML IV.SOLN IVC SCH (15:11)
[2019-11-22] MEDS: lamoTRIgine 100 MG TABLET GTUBE SCH (19:30)
[2019-11-22] MEDS: *HR* LORazepam 2 MG/ML VIAL IVP PRN (19:35)
[2019-11-23] MEDS: Ipratropium/Albuterol Neb 3 ML IH SCH ×12 (01:07→23:25)
[2019-11-23] MEDS: FentaNYL (PF) 1,000 MCG in 0.9 % Sodium Chloride 80 ML IVC SCH ×2 (01:11→09:00)
[2019-11-23] MEDS: Dexmedetomidine HCl 400 MCG/100 ML MLS IVC SCH ×5 (03:09→23:15)
[2019-11-23] MEDS: Artificial Tears SOLN 15 ML BOTTLE BOTH EYES SCH ×6 (03:11→23:14)
[2019-11-23 03:37] LABS: Basophils % 0.2 %; Hematocrit 28.7 % (37.5-50.1); Hemoglobin 8.5 g/dL (12.9-16.9); Immature Granulocytes % 2.2 % (0-4); Lymphocytes # 0.9 K/mcL (0.6-4.6); Lymphocytes % 6.9 %; Mean Corpuscular HGB Conc 29.6 g/dL (31.6-35.5); Mean Corpuscular Hemoglobin 30.6 pg (28.0-33.3); Mean Corpuscular Volume 103.2 fL (83.0-100.0); Mean Platelet Volume 11.7 fL (9.4-12.4); Monocytes # 1.2 K/mcL (0.0-1.3); Monocytes % 9.6 %; Neutrophils # 10.5 K/mcL (1.6-8.9); Platelet Count 213 K/mcL (140-400); Red Blood Count 2.78 M/mcL (4.19-5.50); Red Cell Distribution Width 12.6 % (11.5-14.5); Segmented Neutrophils % 81.1 %; White Blood Count 12.9 K/mcL (4.3-11.1)
[2019-11-23 03:53] LABS: Alanine Aminotransferase 163 Units/L (7-52); Albumin 3.3 g/dL (3.5-5.7); Albumin/Globulin Ratio 1.5 (1.1-2.2); Alkaline Phosphatase 30 Units/L (34-104); Aspartate Amino Transferase 26 Units/L (13-39); BUN/Creatinine Ratio 38 (6-26); Bilirubin,Direct 0.3 mg/dL (0.0-0.2); Bilirubin,Indirect 0.3 mg/dL (0.0-1.0); Bilirubin,Total 0.6 mg/dL (0.3-1.0); Blood Urea Nitrogen 29 mg/dL (8-23); Calcium 8.6 mg/dL (8.6-10.3); Carbon Dioxide 40 mEq/L (23-29); Chloride 100 mEq/L (98-107); Globulin 2.2 g/dL (2.4-3.5); Glucose 187 mg/dL (70-105); Osmolality,Calculated 309 (280-300); Potassium 4.5 mEq/L (3.5-5.1); Sodium 144 mEq/L (136-145); Total Protein 5.5 g/dL (6.4-8.9); eGFR For African Americans > 60 (> 60); eGFR For Non-African Americans > 60 (> 60)
[2019-11-23] MEDS: Doxycycline 100 MG in 0.9 % Sodium Chloride Mini Bag 100 ML IVPB SCH ×2 (05:01→17:15)
[2019-11-23] MEDS: methylPREDNISolone 125 MG/2 ML VIAL IVP SCH ×2 (05:04→17:15)
[2019-11-23] MEDS: Insulin LISPRO 300 UNITS/3 ML VIAL SQ SCH ×4 (05:05→23:18)
[2019-11-23 05:10] LABS: ABG Base Excess 17 mEq/L (-2 to 3); ABG HCO3 42 mEq/L (21-27); ABG Oxygen Saturation 95 % (95-98); ABG PCO2 53 mmHg (35-45); ABG PH 7.51 pH Units (7.32-7.45); ABG PO2 71 mmHg (85-104); ABG TCO2 44 mEq/L (20-26); Blood Gas VT 550 cc
[2019-11-23] MEDS: Pantoprazole 40 MG VIAL IVP SCH (08:00)
[2019-11-23] MEDS: Cefepime HCl 2,000 MG in Water for inj. (sterile) 20 ML IVP SCH ×3 (08:00→23:14)
[2019-11-23] MEDS: Perphenazine 8 MG TABLET GTUBE SCH ×2 (08:01→20:12)
[2019-11-23] MEDS: Aspirin 81 MG TAB.CHEW GTUBE SCH (08:01)
[2019-11-23] MEDS: Docusate Oral Soln 100 MG/10 ML UDC GTUBE SCH ×2 (08:01→20:12)
[2019-11-23] MEDS: Chlorhexidine Rinse 15 ML MOUTHWASH MM SCH ×2 (08:02→20:12)
[2019-11-23] MEDS: Potassium Chloride Elixir 20 MEQ/15 ML UDC GTUBE SCH ×2 (08:03→20:13)
[2019-11-23] MEDS ORDERED: *HR* Metoprolol 5 MG/5 ML VIAL IVP ONE ×3 (09:56→18:17)
[2019-11-23] MEDS: Heparin 25,000 UNIT/250 ML D5W 25,000 UNIT/250 ML IV.SOLN IVC SCH ×2 (10:11→13:26)
[2019-11-23] MEDS: Norepinephrine 4 MG in 0.9 % Sodium Chloride 250 ML IVC SCH (10:12)
[2019-11-23] MEDS ORDERED: DilTIAZem 50 MG in 0.9 % Sodium Chloride 40 ML IVC SCH (18:30)
[2019-11-23 18:40] LABS: VBG Ionized Calcium 0.98 mmol/L (1.15-1.35)
[2019-11-23 18:56] LABS: BUN/Creatinine Ratio 36 (6-26); Blood Urea Nitrogen 26 mg/dL (8-23); Carbon Dioxide 32 mEq/L (23-29); Chloride 102 mEq/L (98-107); Glucose 135 mg/dL (70-105); Magnesium 1.7 mg/dL (1.6-2.6); Osmolality,Calculated 297 (280-300); Potassium 3.6 mEq/L (3.5-5.1); Sodium 140 mEq/L (136-145); eGFR For African Americans > 60 (> 60); eGFR For Non-African Americans > 60 (> 60)
[2019-11-23] MEDS ORDERED: 0.9 % Sodium Chloride 1,000 ML ONE (19:02)
[2019-11-23] MEDS ORDERED: 0.9 % Sodium Chloride 1,000 ML IVC ONE (19:02)
[2019-11-23] MEDS ORDERED: *HR* Adenosine 6 MG/2 ML VIAL IVP ONE (19:16)
[2019-11-23] MEDS ORDERED: Amiodarone Premix 150 MG/100 ML BAG IVPB ONE (19:23)
[2019-11-23] MEDS ORDERED: Amiodarone Premix 360 MG/200 ML BAG IVC ONE ×2 (19:23→19:25)
[2019-11-23] MEDS ORDERED: *HR* LORazepam 2 MG/ML VIAL ONE ×2 (19:38→19:45)
[2019-11-23] MEDS: lamoTRIgine 100 MG TABLET GTUBE SCH (20:12)
[2019-11-23 23:08] LABS: ABG Base Excess 9 mEq/L (-2 to 3); ABG HCO3 34 mEq/L (21-27); ABG Oxygen Saturation 94 % (95-98); ABG PCO2 54 mmHg (35-45); ABG PH 7.41 pH Units (7.32-7.45); ABG PO2 73 mmHg (85-104); ABG TCO2 36 mEq/L (20-26); Blood Gas Modality AF; Blood Gas VT 500 cc
[2019-11-24] MEDS ORDERED: Amiodarone Premix 360 MG/200 ML BAG IVC SCH (02:30)
[2019-11-24] MEDS: Dexmedetomidine HCl 400 MCG/100 ML MLS IVC SCH ×6 (03:10→22:08)
[2019-11-24] MEDS: Artificial Tears SOLN 15 ML BOTTLE BOTH EYES SCH ×6 (03:23→23:35)
[2019-11-24] MEDS: Ipratropium/Albuterol Neb 3 ML IH SCH ×6 (03:24→23:31)
[2019-11-24 03:45] LABS: Basophils % 0.1 %; Eosinophils % 0.2 %; Hematocrit 28.5 % (37.5-50.1); Hemoglobin 8.4 g/dL (12.9-16.9); Immature Granulocytes % 1.2 % (0-4); Lymphocytes % 8.4 %; Mean Corpuscular HGB Conc 29.5 g/dL (31.6-35.5); Mean Corpuscular Hemoglobin 30.3 pg (28.0-33.3); Mean Corpuscular Volume 102.9 fL (83.0-100.0); Mean Platelet Volume 11.5 fL (9.4-12.4); Monocytes % 8.1 %; Neutrophils # 9.9 K/mcL (1.6-8.9); Platelet Count 204 K/mcL (140-400); Red Blood Count 2.77 M/mcL (4.19-5.50); Red Cell Distribution Width 12.4 % (11.5-14.5); White Blood Count 12.1 K/mcL (4.3-11.1)
[2019-11-24 03:47] LABS: VBG Ionized Calcium 1.09 mmol/L (1.15-1.35)
[2019-11-24 04:03] LABS: Magnesium 1.7 mg/dL (1.6-2.6); Phosphorous 2.9 mg/dL (2.7-4.5)
[2019-11-24 04:04] LABS: Alanine Aminotransferase 114 Units/L (7-52); Albumin/Globulin Ratio 1.3 (1.1-2.2); Alkaline Phosphatase 29 Units/L (34-104); Aspartate Amino Transferase 22 Units/L (13-39); BUN/Creatinine Ratio 36 (6-26); Bilirubin,Direct 0.2 mg/dL (0.0-0.2); Bilirubin,Indirect 0.3 mg/dL (0.0-1.0); Bilirubin,Total 0.5 mg/dL (0.3-1.0); Blood Urea Nitrogen 26 mg/dL (8-23); Calcium 7.8 mg/dL (8.6-10.3); Carbon Dioxide 32 mEq/L (23-29); Chloride 101 mEq/L (98-107); Globulin 2.4 g/dL (2.4-3.5); Glucose 181 mg/dL (70-105); Osmolality,Calculated 291 (280-300); Potassium 4.2 mEq/L (3.5-5.1); Sodium 136 mEq/L (136-145); Total Protein 5.4 g/dL (6.4-8.9); eGFR For African Americans > 60 (> 60); eGFR For Non-African Americans > 60 (> 60)
[2019-11-24] MEDS: FentaNYL (PF) 1,000 MCG in 0.9 % Sodium Chloride 80 ML IVC SCH ×2 (04:55→20:07)
[2019-11-24 04:59] LABS: ABG Base Excess 7 mEq/L (-2 to 3); ABG HCO3 32 mEq/L (21-27); ABG Oxygen Saturation 96 % (95-98); ABG PCO2 51 mmHg (35-45); ABG PH 7.41 pH Units (7.32-7.45); ABG PO2 84 mmHg (85-104); ABG TCO2 34 mEq/L (20-26); Blood Gas VT 500 cc
[2019-11-24] MEDS: Insulin LISPRO 300 UNITS/3 ML VIAL SQ SCH ×4 (05:00→23:39)
[2019-11-24] MEDS: methylPREDNISolone 125 MG/2 ML VIAL IVP SCH ×2 (05:01→17:36)
[2019-11-24] MEDS: Doxycycline 100 MG in 0.9 % Sodium Chloride Mini Bag 100 ML IVPB SCH ×2 (05:01→17:36)
[2019-11-24] MEDS ORDERED: Potassium Phosphate 44 MEQ in 0.9 % Sodium Chloride 250 ML IVPB PRN (05:33)
[2019-11-24] MEDS ORDERED: Calcium Gluconate 1gm/50mL 1 GM/50 ML BAG IVPB PRN (05:33)
[2019-11-24] MEDS: Heparin 25,000 UNIT/250 ML D5W 25,000 UNIT/250 ML IV.SOLN IVC SCH (06:21)
[2019-11-24] MEDS: Cefepime HCl 2,000 MG in Water for inj. (sterile) 20 ML IVP SCH ×3 (07:20→23:34)
[2019-11-24] MEDS ORDERED: Calcium Gluconate 1gm/50mL 1 GM/50 ML BAG IVPB ONE (08:37)
[2019-11-24] MEDS: Aspirin 81 MG TAB.CHEW GTUBE SCH (08:45)
[2019-11-24] MEDS: Docusate Oral Soln 100 MG/10 ML UDC GTUBE SCH ×2 (08:45→20:08)
[2019-11-24] MEDS: Perphenazine 8 MG TABLET GTUBE SCH ×2 (08:45→20:08)
[2019-11-24] MEDS: Pantoprazole 40 MG VIAL IVP SCH (08:45)
[2019-11-24] MEDS: Chlorhexidine Rinse 15 ML MOUTHWASH MM SCH ×2 (08:46→20:08)
[2019-11-24] MEDS: Potassium Chloride Elixir 20 MEQ/15 ML UDC GTUBE SCH ×2 (08:46→20:08)
[2019-11-24] MEDS: Norepinephrine 4 MG in 0.9 % Sodium Chloride 250 ML IVC SCH (11:57)
[2019-11-24] MEDS ORDERED: Isovue-370 500 ML BOTTLE IVP ONE (15:25)
[2019-11-24] MEDS ORDERED: SODIUM CHLORIDE/NAHCO3/KCL/PEG 4,000 ML SOLN.RECON PO ONE ×2 (15:37)
[2019-11-24 15:49] LABS: VBG Ionized Calcium 1.13 mmol/L (1.15-1.35)
[2019-11-24 16:04] LABS: Magnesium 1.9 mg/dL (1.6-2.6); Phosphorous 3.7 mg/dL (2.7-4.5)
[2019-11-24 16:17] LABS: Albumin/Globulin Ratio 1.3 (1.1-2.2); Bilirubin,Direct 0.2 mg/dL (0.0-0.2); Bilirubin,Indirect 0.4 mg/dL (0.0-1.0); Bilirubin,Total 0.6 mg/dL (0.3-1.0); Globulin 2.4 g/dL (2.4-3.5); Total Protein 5.4 g/dL (6.4-8.9)
[2019-11-24] MEDS: *HR* Metoprolol 5 MG/5 ML VIAL IVP SCH ×3 (17:35→23:34)
[2019-11-24] MEDS: lamoTRIgine 100 MG TABLET GTUBE SCH (20:08)
[2019-11-25] MEDS: Dexmedetomidine HCl 400 MCG/100 ML MLS IVC SCH ×7 (01:44→22:20)
[2019-11-25] MEDS: Ipratropium/Albuterol Neb 3 ML IH SCH ×6 (03:38→23:18)
[2019-11-25] MEDS: Heparin 25,000 UNIT/250 ML D5W 25,000 UNIT/250 ML IV.SOLN IVC SCH (04:00)
[2019-11-25] MEDS: FentaNYL (PF) 1,000 MCG in 0.9 % Sodium Chloride 80 ML IVC SCH ×2 (04:00→09:58)
[2019-11-25] MEDS: Artificial Tears SOLN 15 ML BOTTLE BOTH EYES SCH ×5 (04:01→19:26)
[2019-11-25 05:03] LABS: Basophils % 0.1 %; Eosinophils % 0.2 %; Hematocrit 29.5 % (37.5-50.1); Hemoglobin 8.8 g/dL (12.9-16.9); Immature Granulocytes % 1.6 % (0-4); Lymphocytes # 0.7 K/mcL (0.6-4.6); Lymphocytes % 5.4 %; Mean Corpuscular HGB Conc 29.8 g/dL (31.6-35.5); Mean Corpuscular Hemoglobin 30.3 pg (28.0-33.3); Mean Corpuscular Volume 101.7 fL (83.0-100.0); Mean Platelet Volume 12.4 fL (9.4-12.4); Monocytes % 8.2 %; Neutrophils # 10.3 K/mcL (1.6-8.9); Platelet Count 225 K/mcL (140-400); Red Cell Distribution Width 12.5 % (11.5-14.5); Segmented Neutrophils % 84.5 %; White Blood Count 12.1 K/mcL (4.3-11.1)
[2019-11-25 05:24] LABS: ABG Base Excess 4 mEq/L (-2 to 3); ABG HCO3 30 mEq/L (21-27); ABG Oxygen Saturation 96 % (95-98); ABG PCO2 53 mmHg (35-45); ABG PH 7.36 pH Units (7.32-7.45); ABG PO2 90 mmHg (85-104); ABG TCO2 31 mEq/L (20-26); Blood Gas Modality AF; Blood Gas VT 500 cc
[2019-11-25] MEDS: Doxycycline 100 MG in 0.9 % Sodium Chloride Mini Bag 100 ML IVPB SCH ×2 (05:31→17:30)
[2019-11-25] MEDS: methylPREDNISolone 125 MG/2 ML VIAL IVP SCH (05:31)
[2019-11-25 05:32] LABS: Alanine Aminotransferase 92 Units/L (7-52); Albumin 3.2 g/dL (3.5-5.7); Albumin/Globulin Ratio 1.4 (1.1-2.2); Alkaline Phosphatase 36 Units/L (34-104); Aspartate Amino Transferase 19 Units/L (13-39); BUN/Creatinine Ratio 37 (6-26); Bilirubin,Direct 0.3 mg/dL (0.0-0.2); Bilirubin,Indirect 0.4 mg/dL (0.0-1.0); Bilirubin,Total 0.7 mg/dL (0.3-1.0); Blood Urea Nitrogen 25 mg/dL (8-23); Carbon Dioxide 30 mEq/L (23-29); Chloride 103 mEq/L (98-107); Globulin 2.3 g/dL (2.4-3.5); Glucose 162 mg/dL (70-105); Magnesium 1.9 mg/dL (1.6-2.6); Osmolality,Calculated 294 (280-300); Phosphorous 2.7 mg/dL (2.7-4.5); Potassium 4.1 mEq/L (3.5-5.1); Sodium 138 mEq/L (136-145); Total Protein 5.5 g/dL (6.4-8.9); eGFR For African Americans > 60 (> 60); eGFR For Non-African Americans > 60 (> 60)
[2019-11-25] MEDS: *HR* Metoprolol 5 MG/5 ML VIAL IVP SCH ×3 (05:32→17:42)
[2019-11-25] MEDS: Insulin LISPRO 300 UNITS/3 ML VIAL SQ SCH ×3 (05:35→19:11)
[2019-11-25] MEDS: Chlorhexidine Rinse 15 ML MOUTHWASH MM SCH ×2 (07:45→19:26)
[2019-11-25] MEDS: Pantoprazole 40 MG VIAL IVP SCH (07:46)
[2019-11-25] MEDS: Cefepime HCl 2,000 MG in Water for inj. (sterile) 20 ML IVP SCH ×2 (07:46→17:42)
[2019-11-25] MEDS: Aspirin 81 MG TAB.CHEW GTUBE SCH (07:47)
[2019-11-25] MEDS: Perphenazine 8 MG TABLET GTUBE SCH ×2 (07:47→19:26)
[2019-11-25] MEDS: Docusate Oral Soln 100 MG/10 ML UDC GTUBE SCH ×2 (07:47→19:26)
[2019-11-25] MEDS: *HR* LORazepam 2 MG/ML VIAL IVP PRN (07:50)
[2019-11-25] MEDS: Lactulose Oral Soln 20 GM/30 ML UDC PO SCH ×3 (08:28→19:26)
[2019-11-25] MEDS: Potassium Chloride Elixir 20 MEQ/15 ML UDC GTUBE SCH ×2 (09:10→19:26)
[2019-11-25 09:46] LABS: BUN/Creatinine Ratio 38 (6-26); Blood Urea Nitrogen 24 mg/dL (8-23); Carbon Dioxide 27 mEq/L (23-29); Chloride 104 mEq/L (98-107); Glucose 152 mg/dL (70-105); Osmolality,Calculated 291 (280-300); Potassium 4.3 mEq/L (3.5-5.1); Sodium 137 mEq/L (136-145); eGFR For African Americans > 60 (> 60); eGFR For Non-African Americans > 60 (> 60)
[2019-11-25] MEDS: Norepinephrine 4 MG in 0.9 % Sodium Chloride 250 ML IVC SCH (09:58)
[2019-11-25] MEDS: *HR* Heparin 5,000 UNIT/ML VIAL SQ SCH ×2 (13:42→21:55)
[2019-11-25] MEDS ORDERED: SODIUM CHLORIDE/NAHCO3/KCL/PEG 4,000 ML SOLN.RECON PO ONE (17:00)
[2019-11-25 17:18] LABS: Magnesium 1.8 mg/dL (1.6-2.6); Phosphorous 3.3 mg/dL (2.7-4.5)
[2019-11-25] MEDS: lamoTRIgine 100 MG TABLET GTUBE SCH (19:26)
[2019-11-26] MEDS: *HR* Metoprolol 5 MG/5 ML VIAL IVP SCH ×5 (01:38→23:44)
[2019-11-26] MEDS: Cefepime HCl 2,000 MG in Water for inj. (sterile) 20 ML IVP SCH ×4 (01:38→23:27)
[2019-11-26] MEDS: Artificial Tears SOLN 15 ML BOTTLE BOTH EYES SCH ×7 (01:38→23:28)
[2019-11-26] MEDS: Insulin LISPRO 300 UNITS/3 ML VIAL SQ SCH ×5 (01:38→23:43)
[2019-11-26] MEDS: Dexmedetomidine HCl 400 MCG/100 ML MLS IVC SCH ×5 (03:14→20:04)
[2019-11-26] MEDS: Ipratropium/Albuterol Neb 3 ML IH SCH ×6 (03:41→23:37)
[2019-11-26 04:19] LABS: Basophils % 0.1 %; Eosinophils # 0.3 K/mcL (0.0-0.6); Eosinophils % 2.3 %; Hematocrit 30.5 % (37.5-50.1); Hemoglobin 8.9 g/dL (12.9-16.9); Lymphocytes # 1.4 K/mcL (0.6-4.6); Mean Corpuscular HGB Conc 29.2 g/dL (31.6-35.5); Mean Corpuscular Hemoglobin 29.9 pg (28.0-33.3); Mean Corpuscular Volume 102.3 fL (83.0-100.0); Monocytes # 1.4 K/mcL (0.0-1.3); Monocytes % 10.9 %; Neutrophils # 9.6 K/mcL (1.6-8.9); Platelet Count 272 K/mcL (140-400); Red Blood Count 2.98 M/mcL (4.19-5.50); Red Cell Distribution Width 12.5 % (11.5-14.5); Segmented Neutrophils % 74.7 %; White Blood Count 12.9 K/mcL (4.3-11.1)
[2019-11-26 04:22] LABS: ABG Base Excess 8 mEq/L (-2 to 3); ABG HCO3 34 mEq/L (21-27); ABG Oxygen Saturation 94 % (95-98); ABG PCO2 56 mmHg (35-45); ABG PH 7.39 pH Units (7.32-7.45); ABG PO2 73 mmHg (85-104); ABG TCO2 36 mEq/L (20-26); Blood Gas Modality ASSIST CONTROL; Blood Gas VT 500 cc
[2019-11-26 04:41] LABS: Alanine Aminotransferase 80 Units/L (7-52); Albumin 3.2 g/dL (3.5-5.7); Albumin/Globulin Ratio 1.5 (1.1-2.2); Alkaline Phosphatase 37 Units/L (34-104); Aspartate Amino Transferase 21 Units/L (13-39); BUN/Creatinine Ratio 36 (6-26); Bilirubin,Direct 0.3 mg/dL (0.0-0.2); Bilirubin,Indirect 0.3 mg/dL (0.0-1.0); Bilirubin,Total 0.6 mg/dL (0.3-1.0); Blood Urea Nitrogen 21 mg/dL (8-23); Calcium 8.1 mg/dL (8.6-10.3); Carbon Dioxide 31 mEq/L (23-29); Chloride 104 mEq/L (98-107); Globulin 2.2 g/dL (2.4-3.5); Glucose 143 mg/dL (70-105); Osmolality,Calculated 293 (280-300); Potassium 3.7 mEq/L (3.5-5.1); Sodium 139 mEq/L (136-145); Total Protein 5.4 g/dL (6.4-8.9); eGFR For African Americans > 60 (> 60); eGFR For Non-African Americans > 60 (> 60)
[2019-11-26] MEDS: FentaNYL (PF) 1,000 MCG in 0.9 % Sodium Chloride 80 ML IVC SCH ×3 (04:41→22:54)
[2019-11-26 05:15] LABS: Phosphorous 2.5 mg/dL (2.7-4.5)
[2019-11-26] MEDS: Doxycycline 100 MG in 0.9 % Sodium Chloride Mini Bag 100 ML IVPB SCH ×2 (06:11→17:54)
[2019-11-26] MEDS: *HR* Heparin 5,000 UNIT/ML VIAL SQ SCH ×3 (06:16→20:07)
[2019-11-26] MEDS: Chlorhexidine Rinse 15 ML MOUTHWASH MM SCH ×2 (08:55→20:05)
[2019-11-26] MEDS: Pantoprazole 40 MG VIAL IVP SCH (08:55)
[2019-11-26] MEDS: Potassium Chloride Elixir 20 MEQ/15 ML UDC GTUBE SCH ×2 (08:55→20:05)
[2019-11-26] MEDS: Aspirin 81 MG TAB.CHEW GTUBE SCH (08:55)
[2019-11-26] MEDS: Perphenazine 8 MG TABLET GTUBE SCH ×2 (08:55→20:05)
[2019-11-26] MEDS: Norepinephrine 4 MG in 0.9 % Sodium Chloride 250 ML IVC SCH (08:56)
[2019-11-26] MEDS ORDERED: *HR* Midazolam HCl 5 MG/5 ML VIAL IVP ONE (09:45)
[2019-11-26] MEDS ORDERED: *HR* Midazolam HCl 2 MG/2 ML VIAL IVP ONE (10:11)
[2019-11-26] MEDS: Docusate Oral Soln 100 MG/10 ML UDC GTUBE SCH ×2 (11:31→19:32)
[2019-11-26] MEDS: Lactulose Oral Soln 20 GM/30 ML UDC PO SCH ×3 (11:31→19:33)
[2019-11-26] MEDS: Metoclopramide 10 MG/2 ML VIAL IVP SCH ×3 (11:51→23:28)
[2019-11-26] MEDS: lamoTRIgine 100 MG TABLET GTUBE SCH (20:05)
[2019-11-27] MEDS: Dexmedetomidine HCl 400 MCG/100 ML MLS IVC SCH ×5 (02:34→22:51)
[2019-11-27] MEDS: Ipratropium/Albuterol Neb 3 ML IH SCH ×6 (03:25→23:42)
[2019-11-27] MEDS: Artificial Tears SOLN 15 ML BOTTLE BOTH EYES SCH ×5 (03:45→22:08)
[2019-11-27 03:53] LABS: Basophils % 0.1 %; Eosinophils # 0.5 K/mcL (0.0-0.6); Eosinophils % 4.9 %; Hematocrit 26.7 % (37.5-50.1); Hemoglobin 8.1 g/dL (12.9-16.9); Immature Granulocytes % 0.5 % (0-4); Lymphocytes % 10.9 %; Mean Corpuscular HGB Conc 30.3 g/dL (31.6-35.5); Mean Corpuscular Hemoglobin 31.2 pg (28.0-33.3); Mean Corpuscular Volume 102.7 fL (83.0-100.0); Monocytes # 0.9 K/mcL (0.0-1.3); Monocytes % 9.8 %; Neutrophils # 6.8 K/mcL (1.6-8.9); Platelet Count 212 K/mcL (140-400); Red Cell Distribution Width 12.6 % (11.5-14.5); Segmented Neutrophils % 73.8 %; White Blood Count 9.2 K/mcL (4.3-11.1)
[2019-11-27 03:55] LABS: Alanine Aminotransferase 60 Units/L (7-52); Albumin 2.9 g/dL (3.5-5.7); Albumin/Globulin Ratio 1.4 (1.1-2.2); Alkaline Phosphatase 35 Units/L (34-104); Aspartate Amino Transferase 17 Units/L (13-39); BUN/Creatinine Ratio 33 (6-26); Bilirubin,Direct 0.2 mg/dL (0.0-0.2); Bilirubin,Indirect 0.4 mg/dL (0.0-1.0); Bilirubin,Total 0.6 mg/dL (0.3-1.0); Blood Urea Nitrogen 21 mg/dL (8-23); Calcium 7.7 mg/dL (8.6-10.3); Carbon Dioxide 30 mEq/L (23-29); Chloride 107 mEq/L (98-107); Globulin 2.1 g/dL (2.4-3.5); Glucose 115 mg/dL (70-105); Osmolality,Calculated 292 (280-300); Sodium 139 mEq/L (136-145); eGFR For African Americans > 60 (> 60); eGFR For Non-African Americans > 60 (> 60)
[2019-11-27 04:17] LABS: ABG Base Excess 6 mEq/L (-2 to 3); ABG HCO3 32 mEq/L (21-27); ABG Oxygen Saturation 93 % (95-98); ABG PCO2 54 mmHg (35-45); ABG PH 7.38 pH Units (7.32-7.45); ABG PO2 68 mmHg (85-104); ABG TCO2 34 mEq/L (20-26); Blood Gas Modality ASSIST CONTROL; Blood Gas VT 500 cc
[2019-11-27] MEDS: Doxycycline 100 MG in 0.9 % Sodium Chloride Mini Bag 100 ML IVPB SCH ×2 (05:23→18:09)
[2019-11-27] MEDS: *HR* Heparin 5,000 UNIT/ML VIAL SQ SCH ×3 (05:23→22:10)
[2019-11-27] MEDS: Metoclopramide 10 MG/2 ML VIAL IVP SCH (05:23)
[2019-11-27] MEDS: Insulin LISPRO 300 UNITS/3 ML VIAL SQ SCH ×3 (05:24→18:10)
[2019-11-27] MEDS: *HR* Metoprolol 5 MG/5 ML VIAL IVP SCH ×3 (05:25→18:10)
[2019-11-27] MEDS: FentaNYL (PF) 1,000 MCG in 0.9 % Sodium Chloride 80 ML IVC SCH (07:31)
[2019-11-27] MEDS ORDERED: Aminoglycoside Consult 1 EACH MC ONE (07:33)
[2019-11-27] MEDS: Pantoprazole 40 MG VIAL IVP SCH (08:23)
[2019-11-27] MEDS: Chlorhexidine Rinse 15 ML MOUTHWASH MM SCH ×2 (08:23→22:08)
[2019-11-27] MEDS: Potassium Chloride Elixir 20 MEQ/15 ML UDC GTUBE SCH ×2 (08:23→22:09)
[2019-11-27] MEDS: Cefepime HCl 2,000 MG in Water for inj. (sterile) 20 ML IVP SCH ×2 (08:24→16:04)
[2019-11-27] MEDS: Perphenazine 8 MG TABLET GTUBE SCH ×2 (08:24→22:09)
[2019-11-27] MEDS: Aspirin 81 MG TAB.CHEW GTUBE SCH (08:24)
[2019-11-27] MEDS: Docusate Oral Soln 100 MG/10 ML UDC GTUBE SCH ×2 (08:25→22:09)
[2019-11-27] MEDS: Lactulose Oral Soln 20 GM/30 ML UDC PO SCH ×3 (08:25→22:10)
[2019-11-27] MEDS: Norepinephrine 4 MG in 0.9 % Sodium Chloride 250 ML IVC SCH (08:25)
[2019-11-27] MEDS ORDERED: *HR* PHENYLEPHRINE 1,000 MCG/10 ML SYRINGE IVP ONE ×2 (19:24→20:23)
[2019-11-27] MEDS ORDERED: *HR* FentaNYL (PF) 100 MCG/2 ML VIAL ONE (20:23)
[2019-11-27] MEDS ORDERED: Ondansetron 4 MG/2 ML VIAL ONE (20:23)
[2019-11-27] MEDS: lamoTRIgine 100 MG TABLET GTUBE SCH (22:09)
[2019-11-27] MEDS: Erythromycin Lactobionate 250 MG in 0.9 % Sodium Chloride 100 ML IVPB SCH (22:09)
[2019-11-28] MEDS: *HR* Metoprolol 5 MG/5 ML VIAL IVP SCH ×3 (00:51→11:33)
[2019-11-28] MEDS: Artificial Tears SOLN 15 ML BOTTLE BOTH EYES SCH ×8 (00:52→23:17)
[2019-11-28] MEDS: Insulin LISPRO 300 UNITS/3 ML VIAL SQ SCH ×4 (00:52→18:16)
[2019-11-28] MEDS: Cefepime HCl 2,000 MG in Water for inj. (sterile) 20 ML IVP SCH ×4 (00:54→23:11)
[2019-11-28] MEDS: Dexmedetomidine HCl 400 MCG/100 ML MLS IVC SCH ×2 (02:41→08:15)
[2019-11-28 03:02] LABS: Basophils % 0.1 %; Eosinophils # 0.5 K/mcL (0.0-0.6); Eosinophils % 4.6 %; Hematocrit 27.9 % (37.5-50.1); Hemoglobin 8.2 g/dL (12.9-16.9); Immature Granulocytes % 0.6 % (0-4); Lymphocytes # 1.1 K/mcL (0.6-4.6); Lymphocytes % 10.9 %; Mean Corpuscular HGB Conc 29.4 g/dL (31.6-35.5); Mean Corpuscular Hemoglobin 30.6 pg (28.0-33.3); Mean Corpuscular Volume 104.1 fL (83.0-100.0); Mean Platelet Volume 11.8 fL (9.4-12.4); Monocytes % 9.7 %; Neutrophils # 7.5 K/mcL (1.6-8.9); Platelet Count 230 K/mcL (140-400); Red Blood Count 2.68 M/mcL (4.19-5.50); Red Cell Distribution Width 12.7 % (11.5-14.5); Segmented Neutrophils % 74.1 %; White Blood Count 10.1 K/mcL (4.3-11.1)
[2019-11-28 03:24] LABS: BUN/Creatinine Ratio 30 (6-26); Blood Urea Nitrogen 17 mg/dL (8-23); Calcium 7.5 mg/dL (8.6-10.3); Carbon Dioxide 27 mEq/L (23-29); Chloride 109 mEq/L (98-107); Glucose 130 mg/dL (70-105); Osmolality,Calculated 285 (280-300); Potassium 4.2 mEq/L (3.5-5.1); Sodium 136 mEq/L (136-145); eGFR For African Americans > 60 (> 60); eGFR For Non-African Americans > 60 (> 60)
[2019-11-28 03:25] LABS: Albumin 2.8 g/dL (3.5-5.7); Albumin/Globulin Ratio 1.3 (1.1-2.2); Bilirubin,Direct 0.3 mg/dL (0.0-0.2); Bilirubin,Indirect 0.3 mg/dL (0.0-1.0); Bilirubin,Total 0.6 mg/dL (0.3-1.0); Globulin 2.1 g/dL (2.4-3.5); Total Protein 4.9 g/dL (6.4-8.9)
[2019-11-28] MEDS: Ipratropium/Albuterol Neb 3 ML IH SCH ×5 (03:47→20:48)
[2019-11-28 04:41] LABS: ABG Base Excess 3 mEq/L (-2 to 3); ABG HCO3 29 mEq/L (21-27); ABG Oxygen Saturation 93 % (95-98); ABG PCO2 52 mmHg (35-45); ABG PH 7.36 pH Units (7.32-7.45); ABG PO2 70 mmHg (85-104); ABG TCO2 31 mEq/L (20-26); Blood Gas Modality AF; Blood Gas VT 500 cc
[2019-11-28] MEDS: Erythromycin Lactobionate 250 MG in 0.9 % Sodium Chloride 100 ML IVPB SCH ×3 (06:23→21:25)
[2019-11-28] MEDS: Doxycycline 100 MG in 0.9 % Sodium Chloride Mini Bag 100 ML IVPB SCH ×2 (06:28→17:21)
[2019-11-28] MEDS: *HR* Heparin 5,000 UNIT/ML VIAL SQ SCH ×3 (06:29→20:31)
[2019-11-28] MEDS: Aspirin 81 MG TAB.CHEW GTUBE SCH (08:51)
[2019-11-28] MEDS: Perphenazine 8 MG TABLET GTUBE SCH ×2 (08:51→20:17)
[2019-11-28] MEDS: Chlorhexidine Rinse 15 ML MOUTHWASH MM SCH ×2 (08:54→20:27)
[2019-11-28] MEDS: Docusate Oral Soln 100 MG/10 ML UDC GTUBE SCH ×2 (08:54→20:17)
[2019-11-28] MEDS: Lactulose Oral Soln 20 GM/30 ML UDC PO SCH ×3 (08:54→20:17)
[2019-11-28] MEDS: Potassium Chloride Elixir 20 MEQ/15 ML UDC GTUBE SCH ×2 (08:55→20:17)
[2019-11-28] MEDS: Pantoprazole 40 MG VIAL IVP SCH (08:55)
[2019-11-28] MEDS: Norepinephrine 4 MG in 0.9 % Sodium Chloride 250 ML IVC SCH (08:55)
[2019-11-28] MEDS ORDERED: cloZAPine 25 MG TABLET PO SCH (09:00)
[2019-11-28] MEDS ORDERED: DilTIAZem 50 MG in 0.9 % Sodium Chloride 40 ML IVC SCH (16:45)
[2019-11-28] MEDS: cloZAPine 25 MG TABLET PO SCH (20:17)
[2019-11-28] MEDS: lamoTRIgine 100 MG TABLET GTUBE SCH (20:17)
[2019-11-28] MEDS ORDERED: 0.9 % Sodium Chloride 500 ML ONE (20:22)
[2019-11-28] MEDS: *HR* Metoprolol 5 MG/5 ML VIAL IVP PRN (21:29)
[2019-11-28] MEDS: Levalbuterol Neb 1.25 MG/3 ML IH SCH (22:11)
[2019-11-29] MEDS: Insulin LISPRO 300 UNITS/3 ML VIAL SQ SCH ×5 (00:04→23:50)
[2019-11-29 04:04] LABS: Basophils % 0.2 %; Eosinophils # 0.5 K/mcL (0.0-0.6); Eosinophils % 3.7 %; Hematocrit 27.6 % (37.5-50.1); Hemoglobin 8.2 g/dL (12.9-16.9); Immature Granulocytes % 0.7 % (0-4); Lymphocytes # 0.9 K/mcL (0.6-4.6); Lymphocytes % 6.6 %; Mean Corpuscular HGB Conc 29.7 g/dL (31.6-35.5); Mean Corpuscular Hemoglobin 30.1 pg (28.0-33.3); Mean Corpuscular Volume 101.5 fL (83.0-100.0); Mean Platelet Volume 11.6 fL (9.4-12.4); Monocytes # 1.5 K/mcL (0.0-1.3); Monocytes % 10.4 %; Neutrophils # 11.1 K/mcL (1.6-8.9); Platelet Count 337 K/mcL (140-400); Red Blood Count 2.72 M/mcL (4.19-5.50); Red Cell Distribution Width 12.9 % (11.5-14.5); Segmented Neutrophils % 78.4 %; White Blood Count 14.2 K/mcL (4.3-11.1)
[2019-11-29 04:26] LABS: Alanine Aminotransferase 50 Units/L (7-52); Albumin/Globulin Ratio 1.4 (1.1-2.2); Alkaline Phosphatase 39 Units/L (34-104); Aspartate Amino Transferase 29 Units/L (13-39); BUN/Creatinine Ratio 20 (6-26); Bilirubin,Direct 0.2 mg/dL (0.0-0.2); Bilirubin,Indirect 0.5 mg/dL (0.0-1.0); Bilirubin,Total 0.7 mg/dL (0.3-1.0); Blood Urea Nitrogen 11 mg/dL (8-23); Calcium 7.9 mg/dL (8.6-10.3); Carbon Dioxide 25 mEq/L (23-29); Chloride 108 mEq/L (98-107); Globulin 2.1 g/dL (2.4-3.5); Glucose 86 mg/dL (70-105); Osmolality,Calculated 291 (280-300); Potassium 3.8 mEq/L (3.5-5.1); Sodium 141 mEq/L (136-145); Total Protein 5.1 g/dL (6.4-8.9); eGFR For African Americans > 60 (> 60); eGFR For Non-African Americans > 60 (> 60)
[2019-11-29] MEDS: Levalbuterol Neb 1.25 MG/3 ML IH SCH ×4 (04:28→21:47)
[2019-11-29] MEDS: *HR* Heparin 5,000 UNIT/ML VIAL SQ SCH ×3 (05:11→20:58)
[2019-11-29] MEDS: Erythromycin Lactobionate 250 MG in 0.9 % Sodium Chloride 100 ML IVPB SCH ×3 (05:13→21:15)
[2019-11-29] MEDS: Doxycycline 100 MG in 0.9 % Sodium Chloride Mini Bag 100 ML IVPB SCH ×2 (05:49→17:17)
[2019-11-29] MEDS: *HR* Metoprolol 5 MG/5 ML VIAL IVP PRN ×2 (06:15→10:58)
[2019-11-29] MEDS: Norepinephrine 4 MG in 0.9 % Sodium Chloride 250 ML IVC SCH (07:28)
[2019-11-29] MEDS: Cefepime HCl 2,000 MG in Water for inj. (sterile) 20 ML IVP SCH ×3 (08:03→23:49)
[2019-11-29] MEDS: cloZAPine 25 MG TABLET PO SCH ×2 (08:03→21:00)
[2019-11-29] MEDS: Pantoprazole 40 MG VIAL IVP SCH (08:04)
[2019-11-29] MEDS: Perphenazine 8 MG TABLET GTUBE SCH ×2 (08:17→20:59)
[2019-11-29] MEDS: Potassium Chloride Elixir 20 MEQ/15 ML UDC GTUBE SCH ×2 (08:17→20:59)
[2019-11-29] MEDS: Aspirin 81 MG TAB.CHEW GTUBE SCH (08:17)
[2019-11-29] MEDS: Lactulose Oral Soln 20 GM/30 ML UDC PO SCH ×3 (08:17→20:51)
[2019-11-29] MEDS: Docusate Oral Soln 100 MG/10 ML UDC GTUBE SCH ×2 (08:17→20:51)
[2019-11-29] MEDS ORDERED: Furosemide 40 MG in 0.9 % Sodium Chloride 50 ML IV SCH (08:28)
[2019-11-29] MEDS ORDERED: Furosemide 40 MG/4 ML VIAL IVP ONE (08:49)
[2019-11-29] MEDS ORDERED: Furosemide 40 MG/4 ML VIAL ONE (08:51)
[2019-11-29] MEDS ORDERED: *HR* Midazolam HCl 2 MG/2 ML VIAL IV ONE (08:55)
[2019-11-29] MEDS ORDERED: Morphine Sulfate 2 MG/ML SYRINGE IVP ONE (08:57)
[2019-11-29] MEDS ORDERED: Lidocaine Viscous Oral Soln 15 ML SOLUTION MM ONE (09:19)
[2019-11-29] MEDS ORDERED: Lidocaine 2% Syringe 100 MG/5 ML ONE (09:21)
[2019-11-29] MEDS: Phenylephrine 10 MG in 0.9 % Sodium Chloride 250 ML IVC SCH (09:23)
[2019-11-29] MEDS: Nystatin SUSP 5 ML UD.LIQ PO SCH ×3 (13:17→20:51)
[2019-11-29 14:46] LABS: VBG Ionized Calcium 1.12 mmol/L (1.15-1.35); VBG PH 7.34 pH Units (7.32-7.42)
[2019-11-29 15:02] LABS: Magnesium 1.6 mg/dL (1.6-2.6); Phosphorous 1.9 mg/dL (2.7-4.5)
[2019-11-29] MEDS: Furosemide 40 MG/4 ML VIAL IVP SCH (16:16)
[2019-11-29] MEDS: *HR* Digoxin 0.5 MG/2 ML AMPUL IVP SCH ×2 (18:00→23:53)
[2019-11-29] MEDS: lamoTRIgine 100 MG TABLET GTUBE SCH (21:01)
[2019-11-30 03:58] LABS: VBG Ionized Calcium 1.08 mmol/L (1.15-1.35)
[2019-11-30 04:03] LABS: Basophils % 0.2 %; Eosinophils # 0.1 K/mcL (0.0-0.6); Hematocrit 28.5 % (37.5-50.1); Hemoglobin 8.6 g/dL (12.9-16.9); Immature Granulocytes % 0.8 % (0-4); Lymphocytes # 0.7 K/mcL (0.6-4.6); Mean Corpuscular HGB Conc 30.2 g/dL (31.6-35.5); Mean Corpuscular Hemoglobin 30.4 pg (28.0-33.3); Mean Corpuscular Volume 100.7 fL (83.0-100.0); Mean Platelet Volume 10.7 fL (9.4-12.4); Monocytes # 0.9 K/mcL (0.0-1.3); Monocytes % 7.9 %; Neutrophils # 9.3 K/mcL (1.6-8.9); Platelet Count 386 K/mcL (140-400); Red Blood Count 2.83 M/mcL (4.19-5.50); Red Cell Distribution Width 13.2 % (11.5-14.5); Segmented Neutrophils % 84.1 %; White Blood Count 11.1 K/mcL (4.3-11.1)
[2019-11-30 04:19] LABS: BUN/Creatinine Ratio 22 (6-26); Blood Urea Nitrogen 14 mg/dL (8-23); Calcium 8.2 mg/dL (8.6-10.3); Carbon Dioxide 24 mEq/L (23-29); Chloride 107 mEq/L (98-107); Glucose 128 mg/dL (70-105); Magnesium 1.9 mg/dL (1.6-2.6); Osmolality,Calculated 292 (280-300); Phosphorous 2.6 mg/dL (2.7-4.5); Potassium 3.6 mEq/L (3.5-5.1); Sodium 140 mEq/L (136-145); eGFR For African Americans > 60 (> 60); eGFR For Non-African Americans > 60 (> 60)
[2019-11-30] MEDS: Levalbuterol Neb 1.25 MG/3 ML IH SCH ×4 (04:22→22:17)
[2019-11-30] MEDS: *HR* Digoxin 0.5 MG/2 ML AMPUL IVP SCH (06:16)
[2019-11-30] MEDS: *HR* Heparin 5,000 UNIT/ML VIAL SQ SCH ×3 (06:20→20:54)
[2019-11-30] MEDS: *HR* Metoprolol 5 MG/5 ML VIAL IVP PRN ×2 (06:22→13:21)
[2019-11-30] MEDS: Cefepime HCl 2,000 MG in Water for inj. (sterile) 20 ML IVP SCH (06:23)
[2019-11-30] MEDS: Doxycycline 100 MG in 0.9 % Sodium Chloride Mini Bag 100 ML IVPB SCH (06:29)
[2019-11-30] MEDS: Insulin LISPRO 300 UNITS/3 ML VIAL SQ SCH ×4 (06:34→23:48)
[2019-11-30] MEDS: Erythromycin Lactobionate 250 MG in 0.9 % Sodium Chloride 100 ML IVPB SCH ×3 (06:36→21:08)
[2019-11-30] MEDS: Norepinephrine 4 MG in 0.9 % Sodium Chloride 250 ML IVC SCH (07:46)
[2019-11-30] MEDS: cloZAPine 25 MG TABLET PO SCH ×2 (07:46→20:53)
[2019-11-30] MEDS: Furosemide 40 MG/4 ML VIAL IVP SCH ×2 (07:46→17:23)
[2019-11-30] MEDS: Pantoprazole 40 MG VIAL IVP SCH (07:46)
[2019-11-30] MEDS: Potassium Chloride Elixir 20 MEQ/15 ML UDC GTUBE SCH ×2 (07:46→20:53)
[2019-11-30] MEDS: Nystatin SUSP 5 ML UD.LIQ PO SCH ×4 (07:46→20:52)
[2019-11-30] MEDS: Metoclopramide 10 MG/2 ML VIAL IVP SCH ×4 (07:48→23:49)
[2019-11-30] MEDS ORDERED: *HR* Midazolam HCl 2 MG/2 ML VIAL IVP ONE (07:54)
[2019-11-30] MEDS: Phenylephrine 10 MG in 0.9 % Sodium Chloride 250 ML IVC SCH (08:37)
[2019-11-30] MEDS: Lactulose Oral Soln 20 GM/30 ML UDC PO SCH ×3 (12:36→20:54)
[2019-11-30] MEDS: Aspirin 325 MG TABLET PO SCH (12:36)
[2019-11-30] MEDS: Docusate Oral Soln 100 MG/10 ML UDC GTUBE SCH ×2 (12:42→20:53)
[2019-11-30] MEDS: Perphenazine 8 MG TABLET GTUBE SCH ×2 (13:20→20:52)
[2019-11-30 14:10] LABS: Magnesium 1.9 mg/dL (1.6-2.6)
[2019-11-30 15:51] LABS: Digoxin 0.6 ng/mL (0.8-2.0)
[2019-11-30 16:53] LABS: Potassium 3.3 mEq/L (3.5-5.1)
[2019-11-30] MEDS: Dexmedetomidine HCl 400 MCG/100 ML MLS IVC SCH (17:09)
[2019-11-30] MEDS: lamoTRIgine 100 MG TABLET GTUBE SCH (20:51)
[2019-12-01] MEDS: *HR* LORazepam 2 MG/ML VIAL IVP PRN ×4 (02:05→23:08)
[2019-12-01] MEDS: Levalbuterol Neb 1.25 MG/3 ML IH SCH ×4 (03:41→21:55)
[2019-12-01 03:53] LABS: Basophils % 0.3 %; Eosinophils # 0.2 K/mcL (0.0-0.6); Eosinophils % 1.9 %; Hematocrit 26.6 % (37.5-50.1); Hemoglobin 8.1 g/dL (12.9-16.9); Immature Granulocytes % 0.8 % (0-4); Lymphocytes # 0.9 K/mcL (0.6-4.6); Lymphocytes % 7.1 %; Mean Corpuscular HGB Conc 30.5 g/dL (31.6-35.5); Mean Corpuscular Hemoglobin 30.3 pg (28.0-33.3); Mean Corpuscular Volume 99.6 fL (83.0-100.0); Mean Platelet Volume 10.7 fL (9.4-12.4); Monocytes # 1.5 K/mcL (0.0-1.3); Monocytes % 12.7 %; Neutrophils # 9.2 K/mcL (1.6-8.9); Platelet Count 369 K/mcL (140-400); Red Blood Count 2.67 M/mcL (4.19-5.50); Red Cell Distribution Width 13.2 % (11.5-14.5); Segmented Neutrophils % 77.2 %; White Blood Count 11.9 K/mcL (4.3-11.1)
[2019-12-01 04:12] LABS: BUN/Creatinine Ratio 26 (6-26); Blood Urea Nitrogen 16 mg/dL (8-23); Carbon Dioxide 29 mEq/L (23-29); Chloride 109 mEq/L (98-107); Glucose 131 mg/dL (70-105); Osmolality,Calculated 299 (280-300); Potassium 3.4 mEq/L (3.5-5.1); Sodium 143 mEq/L (136-145); eGFR For African Americans > 60 (> 60); eGFR For Non-African Americans > 60 (> 60)
[2019-12-01 04:46] LABS: Magnesium 2.1 mg/dL (1.6-2.6)
[2019-12-01] MEDS: Dexmedetomidine HCl 400 MCG/100 ML MLS IVC SCH ×2 (04:46→19:11)
[2019-12-01] MEDS: Metoclopramide 10 MG/2 ML VIAL IVP SCH (05:26)
[2019-12-01] MEDS: Erythromycin Lactobionate 250 MG in 0.9 % Sodium Chloride 100 ML IVPB SCH (05:26)
[2019-12-01] MEDS: *HR* Heparin 5,000 UNIT/ML VIAL SQ SCH ×3 (05:26→20:27)
[2019-12-01] MEDS: Insulin LISPRO 300 UNITS/3 ML VIAL SQ SCH ×4 (05:41→20:27)
[2019-12-01] MEDS: Perphenazine 8 MG TABLET GTUBE SCH ×2 (08:48→20:26)
[2019-12-01] MEDS: Potassium Chloride Elixir 20 MEQ/15 ML UDC GTUBE SCH ×2 (08:48→20:26)
[2019-12-01] MEDS: Furosemide 40 MG/4 ML VIAL IVP SCH ×2 (08:48→17:49)
[2019-12-01] MEDS: cloZAPine 25 MG TABLET PO SCH ×2 (08:49→20:30)
[2019-12-01] MEDS: Nystatin SUSP 5 ML UD.LIQ PO SCH ×4 (08:49→20:27)
[2019-12-01] MEDS: *HR* Digoxin 0.5 MG/2 ML AMPUL IVP SCH (08:49)
[2019-12-01] MEDS: Aspirin 325 MG TABLET PO SCH (08:49)
[2019-12-01] MEDS: Pantoprazole 40 MG VIAL IVP SCH ×2 (08:49→20:26)
[2019-12-01] MEDS: Lactulose Oral Soln 20 GM/30 ML UDC PO SCH ×3 (08:50→20:15)
[2019-12-01] MEDS: Docusate Oral Soln 100 MG/10 ML UDC GTUBE SCH ×2 (08:50→20:27)
[2019-12-01] MEDS ORDERED: D10% in Water 500 ML IVC PRN (11:21)
[2019-12-01 11:22] LABS: Phosphorous 2.5 mg/dL (2.7-4.5)
[2019-12-01 15:07] LABS: Hematocrit 26.2 % (37.5-50.1); Hemoglobin 7.8 g/dL (12.9-16.9)
[2019-12-01] MEDS ORDERED: Clinimix E 5%-15% SOLUTION 2,000 ML with MVI, adult with vitamin K 10 ML IVC SCH (17:00)
[2019-12-01] MEDS: Norepinephrine 4 MG in 0.9 % Sodium Chloride 250 ML IVC SCH (19:10)
[2019-12-01] MEDS: Phenylephrine 10 MG in 0.9 % Sodium Chloride 250 ML IVC SCH (19:10)
[2019-12-01] MEDS: lamoTRIgine 100 MG TABLET GTUBE SCH (20:25)
[2019-12-01] MEDS: Simethicone 80 MG TAB.CHEW PO SCH ×2 (20:26→21:23)
[2019-12-02] MEDS: Insulin LISPRO 300 UNITS/3 ML VIAL SQ SCH ×3 (00:20→08:48)
[2019-12-02] MEDS: Dexmedetomidine HCl 400 MCG/100 ML MLS IVC SCH (00:46)
[2019-12-02] MEDS: Levalbuterol Neb 1.25 MG/3 ML IH SCH ×2 (03:11→09:35)
[2019-12-02 03:42] LABS: Basophils # 0.1 K/mcL (0.0-0.2); Basophils % 0.5 %; Eosinophils # 0.3 K/mcL (0.0-0.6); Eosinophils % 2.9 %; Hematocrit 26.5 % (37.5-50.1); Hemoglobin 7.9 g/dL (12.9-16.9); Immature Granulocytes % 0.8 % (0-4); Lymphocytes % 9.7 %; Mean Corpuscular HGB Conc 29.8 g/dL (31.6-35.5); Mean Corpuscular Hemoglobin 31.1 pg (28.0-33.3); Mean Corpuscular Volume 104.3 fL (83.0-100.0); Monocytes # 1.3 K/mcL (0.0-1.3); Monocytes % 12.1 %; Neutrophils # 7.8 K/mcL (1.6-8.9); Platelet Count 331 K/mcL (140-400); Red Blood Count 2.54 M/mcL (4.19-5.50); Red Cell Distribution Width 13.3 % (11.5-14.5); White Blood Count 10.5 K/mcL (4.3-11.1)
[2019-12-02 04:11] LABS: Magnesium 2.1 mg/dL (1.6-2.6); Phosphorous 3.1 mg/dL (2.7-4.5); Triglycerides 158 mg/dL (< 150)
[2019-12-02] MEDS: *HR* LORazepam 2 MG/ML VIAL IVP PRN ×3 (04:12→22:42)
[2019-12-02 06:05] LABS: BUN/Creatinine Ratio 36 (6-26); Blood Urea Nitrogen 16 mg/dL (8-23); Calcium 8.1 mg/dL (8.6-10.3); Carbon Dioxide 28 mEq/L (23-29); Chloride 111 mEq/L (98-107); Glucose 167 mg/dL (70-105); Osmolality,Calculated 301 (280-300); Potassium 3.8 mEq/L (3.5-5.1); Sodium 143 mEq/L (136-145); eGFR For African Americans > 60 (> 60); eGFR For Non-African Americans > 60 (> 60)
[2019-12-02] MEDS: *HR* Heparin 5,000 UNIT/ML VIAL SQ SCH (06:06)
[2019-12-02] MEDS: *HR* Digoxin 0.5 MG/2 ML AMPUL IVP SCH (08:49)
[2019-12-02] MEDS: Nystatin SUSP 5 ML UD.LIQ PO SCH (08:49)
[2019-12-02] MEDS: Potassium Chloride Elixir 20 MEQ/15 ML UDC GTUBE SCH (08:49)
[2019-12-02] MEDS: Pantoprazole 40 MG VIAL IVP SCH (08:50)
[2019-12-02] MEDS: Aspirin 325 MG TABLET PO SCH (08:50)
[2019-12-02] MEDS: Simethicone 80 MG TAB.CHEW PO SCH (08:50)
[2019-12-02] MEDS: Furosemide 40 MG/4 ML VIAL IVP SCH (08:50)
[2019-12-02] MEDS: Perphenazine 8 MG TABLET GTUBE SCH (08:50)
[2019-12-02] MEDS: cloZAPine 25 MG TABLET PO SCH (08:50)
[2019-12-02] MEDS: Docusate Oral Soln 100 MG/10 ML UDC GTUBE SCH (08:51)
[2019-12-02] MEDS: Lactulose Oral Soln 20 GM/30 ML UDC PO SCH (08:51)
[2019-12-02] MEDS ORDERED: Morphine Sulfate 2 MG/ML SYRINGE IVP ONE (10:38)
[2019-12-02] MEDS ORDERED: Morphine Sulfate 2 MG/ML SYRINGE IVP PRN ×2 (12:09→13:52)
[2019-12-02] MEDS ORDERED: Atropine Sulfate 1% 40 DROP/2 ML BOTTLE SL PRN (12:10)
[2019-12-02] MEDS ORDERED: Ondansetron 4 MG/2 ML VIAL IVP PRN (13:52)
[2019-12-02] MEDS ORDERED: Bisacodyl 10 MG RECTAL SUPPOSITORY RC PRN (13:52)
[2019-12-02] MEDS ORDERED: Albuterol 2.5 MG/3 ML NEBULIZER IH PRN (13:52)
[2019-12-02] MEDS: Morphine Sulfate 2 MG/ML SYRINGE IVP PRN ×3 (16:53→21:41)
[2019-12-03] MEDS: Morphine Sulfate 2 MG/ML SYRINGE IVP PRN ×5 (00:45→12:30)
[2019-12-03] MEDS: *HR* LORazepam 2 MG/ML VIAL IVP PRN ×2 (02:12→07:24)
[2019-12-03] MEDS ORDERED: *HR* LORazepam 2 MG/ML VIAL IVP PRN ×3 (11:14→12:30)
[2019-12-03] MEDS: Atropine Sulfate 1% 40 DROP/2 ML BOTTLE SL PRN ×3 (11:22→21:32)
[2019-12-03] MEDS: Morphine Sulfate 2 MG/ML SYRINGE IVP SCH ×3 (14:58→21:25)
[2019-12-03] MEDS: *HR* LORazepam 2 MG/ML VIAL IVP SCH ×2 (16:36→21:26)
[2019-12-03] MEDS ORDERED: cloZAPine 100 MG TABLET PO SCH (21:00)
[2019-12-04] MEDS: Morphine Sulfate 2 MG/ML SYRINGE IVP SCH ×3 (00:54→09:14)
[2019-12-04] MEDS: Atropine Sulfate 1% 40 DROP/2 ML BOTTLE SL PRN ×3 (00:55→09:15)
[2019-12-04] MEDS: *HR* LORazepam 2 MG/ML VIAL IVP SCH ×3 (00:55→09:15)
[2019-12-04 06:41] VITALS: BP 129/74
[2019-12-04] MEDS ORDERED: cloZAPine 100 MG TABLET PO SCH (09:00)
[2019-12-04] MEDS ORDERED: Glycopyrrolate 0.2 MG/ML VIAL IVP ONE (09:22)
[2019-12-04] MEDS ORDERED: Haloperidol Lactate 5 MG/ML VIAL IVP ONE (09:22)
[2019-12-04] MEDS ORDERED: Haloperidol Lactate 5 MG/ML VIAL IVP PRN (09:24)
== END 2019-12-04 10:23 | disposition expired | DRG 720 ==
LOC: ICNU 08:20 → EMEROOARM 08:20 → ICNU 16:00 → SUATTDRO 23:53 → 2ANU 12-02 14:37
PROVIDERS: ADMIT Pediatrics; ATTEND Internal Medicine